=== PATIENT | female | born 1955 | race Caucasian/White ===

== ENCOUNTER 2019-06-24 11:44 | Inpatient (IN) ==
--- OUTSIDE RECORDS SUMMARY | 2019-06-24 11:46 | External Medical Summary | Continuity of Care Document ---
:1955 Author Name Mely Boogie Address Unavailable Unavailable , Care Team Providers Name Role Phone Unavailable Unavailable Unavailable BURR Unavailable Unavailable Unavailable Unavailable Unavailable Problems IBS (irritable colon syndrome) (564.1) (K58.9) Myalgia and myositis (729.1) Pulmonary infarction (415.19) (I26.99) Pulmonary emboli (415.19) (I26.99) Dyslipidemia (272.4) (E78.5) Benign essential HTN (401.1) (I10) Hartman's esophagus (530.85) (K22.70) SOB (shortness of breath) (786.05) (R06.02) Allergies and Adverse Reactions Penicillins (Allergy) Sulfa Drugs (Allergy) Medications Doxycycline Hyclate 50 MG Oral Capsule; TAKE 1 CAPSULE TWICE DAILY. , M.DLidya Start: 21-May-2018 Quantity: 20 Refills: 1 Levothyroxine Sodium 100 MCG Oral Tablet; take 1 table t by mouth once daily , M.DLidya Start: 21-May-2018 Quantity: 30 Refills: 5 Pantoprazole Sodium 40 MG Oral Tablet Delayed Release; TAKE 1 TABLET DAILY. , M.DLidya Start: 21-May-2018 Quantity: 30 Refills: 5 Lisinopril 10 MG Oral Tablet; TAKE 1 TABLET BY MOUTH EVERY D AY Keagan Start: 21-May-2018 Quantity: 1 15 Tablet Bottle Refills: 2 PROzac 20 MG Oral Capsule; TAKE 2 CAPSULES DAILY. , M.DLidya Start: 21-May-2018 Quantity: 180 Refills: 2 Ventolin HFA 108 (90 Base) MCG/ACT Inhal ation Aerosol Solution; INHALE 2 PUFFS EVERY 4 HOURS NEEDED , M.DLidya Start: 21-May-2018 Quantity: 1 8 GM Inhaler Refills: 3 Fiber 625 MG Oral Tablet; USE DIRECTED. Keagan Start: 21-May-2018 Refills: 0 Calcium 500 + D 500-125 MG-UNIT Oral Tablet; TAKE 1 TABLET D Keagan VELÁZQUEZ Start: 21-May-2018 Refills: 0 Multi-Vitamin/Minerals Oral Tablet; TAKE 1 TABLET Manas AGOSTO Start: 21-May-2018 Refills: 0 Procedures Procedures not documented Immunizations Immunizations not documented Social History - Smoking Status Never smoked tobacco Plan of Treatment Planned Observations Planned Goals not documented Results No Known Results Results not documented Encounters Appointment; Jason Garcia M.D. 01-Jun-2018 15:15 Encounter Diagnosis: Problem not documented
--- OUTSIDE RECORDS SUMMARY | 2019-06-24 11:46 | External Medical Summary | Continuity of Care Document ---
:1955 Author Name Mely Boogie Address Unavailable Unavailable , Care Team Providers Name Role Phone Unavailable Unavailable Unavailable BURR Unavailable Unavailable Unavailable Unavailable Unavailable Problems IBS (irritable colon syndrome) (564.1) (K58.9) Myalgia and myositis (729.1) SOB (shortness of breath) (786.05) (R06.02) Hartman's esophagus (530.85) (K22.70) Benign essential HTN (401.1) (I10) Dyslipidemia (272.4) (E78.5) Pulmonary emboli (415.19) (I26.99) Pulmonary infarction (415.19) (I26.99) Allergies and Adverse Reactions Penicillins (Allergy) Sulfa Drugs (Allergy) Medications Pantoprazole Sodium 40 MG Oral Tablet Delayed Release; TAKE 1 TABLET DAILY. , M.DLidya Start: 21-May-2018 Quantity: 30 Refills: 5 Levothyroxine Sodium 100 MCG Oral Tablet; take 1 table t by mouth once daily , M.DLidya Start: 21-May-2018 Quantity: 30 Refills: 5 Doxycycline Hyclate 50 MG Oral Capsule; TAKE 1 CAPSULE TWICE DAILY. , M.DLidya Start: 21-May-2018 Quantity: 20 Refills: 1 Lisinopril 10 MG Oral Tablet; TAKE 1 [...]
--- NOTE | 2019-06-24 12:09 | Emergency Department Note ---
ED Provider Note NAME: SLOANE CASTANON AGE: 63 SEX: F ARRIVES VIA: Walk-In INFORMANT: [Patient] ED PROVIDER(S): Shashi Hernandez MD CHIEF COMPLAINT: Extremity weakness IMPRESSION: Extremity weakness PLAN: Disposition: Admit Condition: [Good] MEDICAL DECISION MAKING: The patient is a 63-year-old has profound extremity weakness. She does have upper extremity reflexes but does not have lower extremity reflexes. Blood work, MR imaging and neurology consultation were performed. Triage Nursing notes reviewed and agree them. [Additional history obtained from] Dr. Sanchez of rheumatology. He had the patient referred to his office. He did review her labs and she had a normal ESR and borderline CRP. Thyroid function was rather unremarkable. Vital Signs: reviewed and remarkable for [no significant abnormalities] Differential diagnosis: Infection, dehydration, metabolic abnormality, hypo/hyperglycemia, electrolyte disturbance, anemia, hypoxia, cardiac sources, intracerebral event, toxicologic, GBS, neurologic, as well as other pathologies. ER treatment provided: Normal saline hydration Oral Ativan Diagnostics interpreted by me: ECG: Rate: 81 Rhythm: Normal sinus rhythm [place]: Normal QRS: Normal ST segements: No elevation or depressions. Other: Inferior Q waves. No PVCs or PACs. Laboratory studies: [See below] an unremarkable CBC and chemistry panel. Imaging studies: MR imaging of the head and cervical spine revealed degenerative changes in the cervical spine with canal narrowing and compression on the anterior cord without cord signal abnormalities. No brain abnormalities. Consultation(s): Dr. Shashi Damian of [facility] neurology. The case was discussed. He recommended transfer to [place] given the concerns for possible GBS. I did discuss the case with Dr. Wong of neurology at [facility]. Given the current issues with the novel coronavirus infection and bed shortage she asked that the patient have additional work-up done here before transfer. I did notify Dr. Damian. He asked for the hospitalist to admit the patient and he would consult. I did discuss the case with Kristen RIVERO from the [facility] hospitalist service. The patient will be admitted under Dr. Kim. HPI: 63/F arrives for evaluation of weakness. This began several weeks ago. He got to the point where she is having difficulty walking and falling. Today she actually had a minor fall without injury but was unable to get herself up because she noticed that she was having arm weakness as well. She was seen in the primary office and referred to rheumatology. Rheumatoid factor and other blood work were unremarkable. The patient's head of sales, Dr. Mich Sanchez contacted me in the emergency department and was concerned that this was a neurologic issue. He did discuss the case with Dr. Damian of [facility] neurology and he agreed. The patient denies any pain. She has chronic neck issues but nothing has changed there. She has had these problems for multiple decades. She had an old C3 fracture. The patient took no medication for her symptoms. She feels worse with exertion. No muscle pains. Pt denies LOC, headache, fevers, chills, diaphoresis, visual changes, chest pain, breathing difficulties, nausea, vomiting, abdominal pain, back pain, melena, hematochezia, urinary symptoms, numbness, lymphadenopathy, rash, or other complaints. ROS: See above HPI for pertinent positives & negatives. A total of [10] systems reviewed and were otherwise negative. PAST MEDICAL HISTORY:[See Below] hypertension PAST SURGICAL HISTORY:[See Below] FAMILY HISTORY:[See Below] SOCIAL HISTORY: HOME MEDICATIONS:Reviewed in EMR ALLERGIES:Penicillin and sulfa. Sulfate. Reviewed in EMR. VITALS:[See Below] PHYSICAL EXAMINATION: GENERAL: Awake, alert, well-appearing, in no distress HENT: Normocephalic, atraumatic. Oropharynx unremarkable. EYES: Normal conjunctiva. Sclera non-icteric. NECK: Inspection normal. Non-tender. Supple. No nuchal rigidity. FROM. No masses. RESPIRATORY: Clear to auscultation. No wheezes. No rales. Normal respiratory effort. CARDIAC: Normal rate. Normal rhythm. No murmurs. No rubs. Extremities warm and well perfused. Pulses equal. No JVD. GI: Soft, non-distended. No tenderness to palpation. No rebound or guarding. No masses. RECTAL: Deferred. MUSCULOSKELETAL: Atraumatic. Chest examination reveals no tenderness. The back is symmetrical on inspection without obvious abnormality. There is no CVA tenderness to palpation. No joint edema. LOWER EXTREMITIES: Calves are equal size bilaterally and non-tender. No edema. No discoloration. NEURO: Normal sensorium. No sensory deficits noted. The patient has 3 out of 5 strength in the left lower extremity. She has 3.5 out of strength in the right lower extremity. The patient has 4-5 strength in the upper extremities. There is no patellar or Achilles reflexes noted in the lower extremities. She does have bicep tendon reflexes bilaterally. SKIN: No rash or jaundice noted. 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 Beliefs That Will Affect Care: None marital status: Current Living Situation: Spouse Feels Safe at Home: Yes Smoking Status: Never smoker Hx Alcohol Use: Yes Alcohol type: wine Alcohol type Comment: 8 ounces once a week Hx Substance Use: No (currently oxy IR for post op pain) Results & Data Vital Signs Vital Signs - 24 hr 06/24/19 11:46 06/24/19 11:56 06/24/19 11:57 Temperature 36.8 C Temperature Source Oral Pulse Rate 91 H 88 Pulse Rate [Left Finger] 88 Pulse Rate from SpO2 Sensor 89 Respiratory Rate 20 16 22 Respiratory Effort / Characteristics Non-Labored Spontaneous Respiratory Depth Normal Respiratory Pattern Agonal Blood Pressure 163/84 H 171/106 H Blood Pressure [Right Arm] 171/106 H Blood Pressure Mean 110 143 Blood Pressure Mean [Right Arm] 127 Pulse Oximetry 97 98 99 Oxygen Delivery Method Room Air Room Air Sepsis Recent Fever Within 48 Hours No Sepsis Action Taken by Nursing No Action Required 06/24/19 12:02 06/24/19 12:10 06/24/19 12:21 Temperature Temperature Source Pulse Rate 88 84 87 Pulse Rate [Left Finger] Pulse Rate from SpO2 Sensor 88 86 87 Respiratory Rate 19 20 24 Respiratory Effort / Characteristics Respiratory Depth Respiratory Pattern Blood Pressure Blood Pressure [Right Arm] Blood Pressure Mean Blood Pressure Mean [Right Arm] Pulse Oximetry 98 96 97 Oxygen Delivery Method Room Air Room Air Room Air Sepsis Recent Fever Within 48 Hours Sepsis Action Taken by Nursing 06/24/19 12:28 06/24/19 12:30 06/24/19 12:31 Temperature Temperature Source Pulse Rate 83 83 85 Pulse Rate [Left Finger] Pulse Rate from SpO2 Sensor 83 83 84 Respiratory Rate 17 18 13 Respiratory Effort / Characteristics Respiratory Depth Respiratory Pattern Blood Pressure 173/81 H 159/87 H Blood Pressure [Right Arm] Blood Pressure Mean 125 110 Blood Pressure Mean [Right Arm] Pulse Oximetry 98 97 95 Oxygen Delivery Method Room Air Room Air Room Air Sepsis Recent Fever Within 48 Hours Sepsis Action Taken by Nursing 06/24/19 12:40 06/24/19 12:50 06/24/19 13:01 Temperature Temperature Source Pulse Rate 85 87 94 H Pulse Rate [Left Finger] Pulse Rate from SpO2 Sensor 85 87 95 H Respiratory Rate 17 13 21 Respiratory Effort / Characteristics Respiratory Depth Respiratory Pattern Blood Pressure Blood Pressure [Right Arm] Blood Pressure Mean 121 Blood Pressure Mean [Right Arm] Pulse Oximetry 95 95 99 Oxygen Delivery Method Room Air Room Air Room Air Sepsis Recent Fever Within 48 Hours Sepsis Action Taken by Nursing 06/24/19 13:10 06/24/19 13:20 06/24/19 15:01 Temperature Temperature Source Pulse Rate 85 Pulse Rate [Left Finger] Pulse Rate from SpO2 Sensor 83 Respiratory Rate 14 Respiratory Effort / Characteristics Respiratory Depth Respiratory Pattern Blood Pressure Blood Pressure [Right Arm] Blood Pressure Mean Blood Pressure Mean [Right Arm] Pulse Oximetry 97 Oxygen Delivery Method Room Air Room Air Room Air Sepsis Recent Fever Within 48 Hours Sepsis Action Taken by Nursing 06/24/19 15:02 06/24/19 15:04 06/24/19 15:11 Temperature Temperature Source Pulse Rate 85 87 84 Pulse Rate [Left Finger] 84 Pulse Rate from SpO2 Sensor 84 85 85 Respiratory Rate 15 15 12 Respiratory Effort / Characteristics Non-Labored Respiratory Depth Normal Respiratory Pattern Regular Blood Pressure 181/107 H 152/86 H Blood Pressure [Right Arm] 181/107 H Blood Pressure Mean 127 96 Blood Pressure Mean [Right Arm] 131 Pulse Oximetry 97 96 94 Oxygen Delivery Method Room Air Room Air Room Air Sepsis Recent Fever Within 48 Hours Sepsis Action Taken by Nursing 06/24/19 15:20 06/24/19 15:30 06/24/19 15:31 Temperature Temperature Source Pulse Rate 84 87 88 Pulse Rate [Left Finger] Pulse Rate from SpO2 Sensor 85 87 89 Respiratory Rate 10 L 18 14 Respiratory Effort / Characteristics Respiratory Depth Respiratory Pattern Blood Pressure 147/88 H Blood Pressure [Right Arm] Blood Pressure Mean 114 Blood Pressure Mean [Right Arm] Pulse Oximetry 94 97 97 Oxygen Delivery Method Room Air Room Air Room Air Sepsis Recent Fever Within 48 Hours Sepsis Action Taken by Nursing 06/24/19 15:41 06/24/19 15:50 06/24/19 16:00 Temperature Temperature Source Pulse Rate 85 109 H 86 Pulse Rate [Left Finger] Pulse Rate from SpO2 Sensor 85 101 H 86 Respiratory Rate 21 13 15 Respiratory Effort / Characteristics Respiratory Depth Respiratory Pattern Blood Pressure 147/92 H Blood Pressure [Right Arm] Blood Pressure Mean 106 Blood Pressure Mean [Right Arm] Pulse Oximetry 97 96 94 Oxygen Delivery Method Room Air Room Air Room Air Sepsis Recent Fever Within 48 Hours Sepsis Action Taken by Nursing 06/24/19 16:01 06/24/19 16:11 06/24/19 16:20 Temperature Temperature Source Pulse Rate 86 84 85 Pulse Rate [Left Finger] Pulse Rate from SpO2 Sensor 86 85 86 Respiratory Rate 12 14 13 Respiratory Effort / Characteristics Respiratory Depth Respiratory Pattern Blood Pressure Blood Pressure [Right Arm] Blood Pressure Mean Blood Pressure Mean [Right Arm] Pulse Oximetry 91 94 95 Oxygen Delivery Method Room Air Sepsis Recent Fever Within 48 Hours Sepsis Action Taken by Nursing 06/24/19 16:30 06/24/19 16:41 06/24/19 16:50 Temperature Temperature Source Pulse Rate 89 86 87 Pulse Rate [Left Finger] Pulse Rate from SpO2 Sensor 88 86 86 Respiratory Rate 18 17 15 Respiratory Effort / Characteristics Respiratory Depth Respiratory Pattern Blood Pressure 136/93 Blood Pressure [Right Arm] Blood Pressure Mean 109 Blood Pressure Mean [Right Arm] Pulse Oximetry 96 96 96 Oxygen Delivery Method Sepsis Recent Fever Within 48 Hours Sepsis Action Taken by Nursing 06/24/19 17:00 06/24/19 17:08 06/24/19 17:11 Temperature Temperature Source Pulse Rate 91 H 93 H Pulse Rate [Left Finger] 96 H Pulse Rate from SpO2 Sensor 91 H 92 H Respiratory Rate 21 20 16 Respiratory Effort / Characteristics Non-Labored Spontaneous Respiratory Depth Normal Respiratory Pattern Regular Blood Pressure 106/78 Blood Pressure [Right Arm] 106/78 Blood Pressure Mean 97 Blood Pressure Mean [Right Arm] 87 Pulse Oximetry 96 98 95 Oxygen Delivery Method Room Air Sepsis Recent Fever Within 48 Hours Sepsis Action Taken by Nursing 06/24/19 17:20 Temperature Temperature Source Pulse Rate 85 Pulse Rate [Left Finger] Pulse Rate from SpO2 Sensor 84 Respiratory Rate 10 L Respiratory Effort / Characteristics Respiratory Depth Respiratory Pattern Blood Pressure Blood Pressure [Right Arm] Blood Pressure Mean Blood Pressure Mean [Right Arm] Pulse Oximetry 95 Oxygen Delivery Method Sepsis Recent Fever Within 48 Hours Sepsis Action Taken by Nursing Laboratory Data Result diagrams: 06/24/19 12:17 06/24/19 12:17 Lab Results 06/24/19 06/24/19 06/24/19 Range/Units 12:17 12:17 13:02 WBC 6.44 (4.8-10.8) K/uL RBC 4.54 (4.2-5.4) M/uL Hgb 12.9 (12.0-16.0) g/dL Hct 39.1 (37-47) % MCV 86.1 (80-100) fL MCH 28.4 (25-34) pg MCHC 33.0 (32-36) g/dL RDW Std Deviation 40.9 (36.4-46.3) fL RDW Coeff of [place] 12.9 (11.5-14.5) % Plt Count 165 (130-400) K/uL MPV 10.2 (7.4-10.4) fL Immature Gran % (Auto) 0.2 % Neut % (Auto) 83.3 % Lymph % (Auto) 9.5 % Daniels % (Auto) 6.5 % Eos % (Auto) 0.3 % Baso % (Auto) 0.2 % Immature Gran # (Auto) 0.01 (0.00-0.02) K/uL Neut # (Auto) 5.37 (1.4-6.5) K/uL Lymph # (Auto) 0.61 L (1.2-3.4) K/uL Daniels # (Auto) 0.42 (0.11-0.59) K/uL Eos # (Auto) 0.02 (0-0.5) K/uL Baso # (Auto) 0.01 (0-0.2) K/uL Sodium 138 (136-145) mmol/L Potassium 3.6 (3.5-5.1) mmol/L Chloride 107 (98-107) mmol/L Carbon Dioxide 26 (21-32) mmol/L Anion Gap 5.0 (3-11) BUN 20 H (7-18) mg/dl Creatinine 0.89 (0.6-1.2) mg/dl Est Cr Clr Drug Dosing 76.3 ml/min Est GFR ( Amer) 79.4 Est GFR (Non-Af Amer) 68.5 BUN/Creatinine Ratio 22.8 H (10-20) Glucose 199 H (70-99) mg/dl Calcium 8.8 (8.5-10.1) mg/dl Magnesium 1.6 L (1.8-2.4) mg/dl Total Bilirubin 0.5 (0.2-1) mg/dl AST 21 (15-37) U/L ALT 26 (12-78) U/L Alkaline Phosphatase 115 (45-117) U/L Total Creatine Kinase 81 (26-192) U/L Troponin I < 0.015 (0-0.045) ng/ml Total Protein 7.0 (6.4-8.2) gm/dl Albumin 3.0 L (3.4-5.0) gm/dl Globulin 4.0 (2.5-4.0) gm/dl Albumin/Globulin Ratio 0.8 L (0.9-2) TSH 1.720 (0.300-4.500) uIu/ml Urine Color Yellow Urine Appearance Clear (Clear) Urine pH 7.0 (4.5-7.5) Ur Specific [place] 1.008 (1.000-1.030) Urine Protein 2+ H (Negative) Urine Glucose (UA) Negative (Negative) Urine Ketones Negative (Negative) Urine Blood 1+ H (Negative) Urine Nitrite Negative (Negative) Urine Bilirubin Negative (Negative) Urine Urobilinogen Negative (Negative) Ur Leukocyte Esterase Trace H (Negative) Urine WBC (Auto) 5-10 H (0-5) /hpf Urine RBC (Auto) 0-4 (0-4) /hpf U Hyaline Cast (Auto) 0 (0-5) /lpf U Epithel Cells (Auto) 5-10 H (0-5) /lpf Urine Bacteria (Auto) 1+ H (Negative) Administered Medications Gadobutrol (Gadavist 65ml) 9 ml IV ONCE PRN PRN Reason: Interaction Checking Stop: 06/28/19 14:15 Last Admin: 06/24/19 14:16 Dose: 9 ml Documented by: [id number] Sodium Chloride (Nss 1000ml) 1,000 mls @ 125 mls/hr IV .Q8H NOEMI Stop: 06/24/19 20:14 Last Admin: 06/24/19 12:20 Dose: 125 mls/hr Documented by: [id number] Discontinued Medications Lorazepam (Ativan) 1 mg SL NOW STA Stop: 06/24/19 12:50 Last Admin: 06/24/19 12:55 Dose: 1 mg Documented by: [id number] Discharge Plan Visit Data Chief Complaint: Weakness Stated Complaint: MUSCLE WEAKNESS ED Provider: Shashi Hernandez Discharge Problem: Weakness of extremity Forms Stand Alone Forms: [facility] Prescriptions Prescriptions: No Action calcium polycarbophil [FiberCon] 625 mg Tablet 1,250 mg PO QAM RF: 0 levothyroxine 100 mcg Tablet 100 mcg PO QAM RF: 0 omeprazole 20 mg capsule,delayed release(DR/EC) 20 mg PO DAILY RF: 0 fluoxetine 20 mg capsule 20 mg PO DAILY RF: 0 albuterol sulfate [Ventolin HFA] 90 mcg/actuation Hfa Aerosol Inhaler 2 puff INHALATION Q6H PRN (Reason: Shortness Of Breath) RF: 0 hydrochlorothiazide 25 mg tablet 25 mg PO DAILY RF: 0 losartan 100 mg tablet 100 mg PO DAILY RF: 0 Excedrin Migraine 250-250-65 mg Tablet 1 tab PO Q6H PRN (Reason: Headache) RF: 0 Referrals Referrals: PCP,NO [Primary Care Provider] -
[2019-06-24] MEDS ORDERED: SODIUM CHLORIDE 0.9% 1000ML 1,000 ML IV SCH ×2 (12:15→19:12)
[2019-06-24 12:29] LABS: Basophils # (auto) 0.01 K/uL (0-0.2); Basophils % (auto) 0.2 %; Eosinophils # (auto) 0.02 K/uL (0-0.5); Eosinophils % (auto) 0.3 %; Hematocrit (blood only) 39.1 % (37-47); Hemoglobin 12.9 g/dL (12.0-16.0); Immature Granulocytes # (auto) 0.01 K/uL (0.00-0.02); Immature Granulocytes % (auto) 0.2 %; Lymphocytes # (auto) 0.61 K/uL (1.2-3.4); Lymphocytes % (auto) 9.5 %; Mean Corpuscular Hemoglobin 28.4 pg (25-34); Mean Corpuscular Volume 86.1 fL (80-100); Mean Platelet Volume 10.2 fL (7.4-10.4); Monocytes # (auto) 0.42 K/uL (0.11-0.59); Monocytes % (auto) 6.5 %; Neutrophils # (auto) 5.37 K/uL (1.4-6.5); Neutrophils % (auto) 83.3 %; Platelet Count 165 K/uL (130-400); RDW Coefficient of Variation 12.9 % (11.5-14.5); RDW Standard Deviation 40.9 fL (36.4-46.3); Red Blood Count 4.54 M/uL (4.2-5.4); White Blood Count 6.44 K/uL (4.8-10.8)
[2019-06-24 12:45] LABS: Alanine Aminotransferase 26 U/L (12-78); Aspartate Aminotransferase 21 U/L (15-37); BUN Creatinine Ratio 22.8 (10-20); Blood Urea Nitrogen 20 mg/dl (7-18); Calcium 8.8 mg/dl (8.5-10.1); Carbon Dioxide 26 mmol/L (21-32); Chloride 107 mmol/L (98-107); Creatinine Clr Calc Pharmacy 76.3 ml/min; Est GFR (African American) 79.4; Est GFR (Non-African American) 68.5; Glucose 199 mg/dl (70-99); Magnesium 1.6 mg/dl (1.8-2.4); Potassium 3.6 mmol/L (3.5-5.1); Sodium 138 mmol/L (136-145)
[2019-06-24] MEDS ORDERED: LORazepam 1 MG TAB SL STA (12:49)
[2019-06-24 12:56] LABS: Albumin Globulin Ratio 0.8 (0.9-2); Alkaline Phosphatase 115 U/L (45-117); Bilirubin,Total 0.5 mg/dl (0.2-1); Creatine Kinase 81 U/L (26-192); Troponin I < 0.015 ng/ml (0-0.045)
--- NOTE | 2019-06-24 13:08 | XRay Report ---
XR chest 1V portable CLINICAL HISTORY: weakness dyspnea COMPARISON STUDY: 05/18/2018 FINDINGS: The bones soft tissues and hemidiaphragms are normal. The cardiomediastinal silhouette is n ormal. The lungs are clear. The pulmonary vasculature is normal. IMPRESSION: Negative chest. ACT 112: Negative or not required by law. The above report was generated using voice recognition software. It may contain grammatical, syntax or spelling errors. Electronically signed by: Alan Duckworth M.D. 06/24/2019 1:07 PM
[2019-06-24 13:19] LABS: Appearance Urine Clear (Clear); Bacteria Urine Automated 1+ (Negative); Bilirubin Urine Negative (Negative); Blood Urine 1+ (Negative); Cast Urine Automated 0 /lpf (0-5); Color Urine Yellow; Glucose Urine UA Negative (Negative); Ketones Urine Negative (Negative); Leukocyte Esterase Urine Trace (Negative); Nitrite Urine Negative (Negative); Protein Urine 2+ (Negative); RBC Urine Automated 0-4 /hpf (0-4); Specific Gravity Urine 1.008 (1.000-1.030); Urobilinogen Urine Negative (Negative)
[2019-06-24] MEDS ORDERED: GADOBUTROL 65ML VIAL IV PRN (14:16)
--- NOTE | 2019-06-24 14:31 | Magnetic Resonance Report ---
MR brain MS wo/w con HISTORY: 63 years-old Female profound extremity weakness acute weakness COMPARISON: None TECHNIQUE: Multiplanar multisequence MRI of the brain was obtained both with and without the use of G adavist FINDINGS: Cancer Researcher localizer images demonstrate no gross extracranial abnormality. Study is motion degraded. No re stricted diffusion to suggest acute or subacute infarct. The visualized midline structures including the corpus callosum, brainstem, optic chiasm, pituitary and pineal glands appear unremarkable on the sagittal T1 series. No cerebellar tonsillar herniation. Degenerative changes are noted in the imaged cervical spine. No acute intracranial hemorrhage, midline shift, abnormal extra-axial collection, hydrocephalus or in tracranial mass. Subcentimeter lesions of the bilateral superficial lobes of the parotid glands measu ring up to 9 x 8 mm on the right may reflect lymph nodes demonstrate restricted diffusion with interm ediate T1 and T2 signal. There is a punctate focus of T2/FLAIR prolongation within the subcortical wh ite matter of the left frontal lobe, image 90 of series 900 and image 91 of series 902, likely of no clinical significance. Additional subcentimeter focus is noted within the subcortical right temporal lobe on image 130 of series 900.. Signal within the brain parenchyma is otherwise within normal limit s. No abnormal enhancement. Signal within the imaged brainstem and cervical spinal cord is also withi n normal limits. Major vascular flow voids appear patent. Trace right mastoid effusion. Minimal mucosal thickening of the paranasal sinuses. The skull and orbits are unremarkable. Prominent subcentimeter anterior and po sterior cervical chain lymph nodes are present bilaterally measuring up to 8 mm, nonspecific. IMPRESSION: 1. Motion degraded exam without acute intracranial abnormality, specifically there is no evidence of acute or subacute infarct. 2. There are a total of two punctate foci of T2/FLAIR prolongation within the subcortical white matte r of the bilateral cerebral hemispheres as above, likely of no clinical significance. No definite huber dence to suggest demyelinating disease. 3. Nonspecific prominent anterior and posterior cervical chain lymph nodes are incidentally noted juan aterally. 4. No abnormal enhancement. ACT 112: Negative or not required by law. The above report was generated using voice recognition software. It may contain grammatical, syntax o r spelling errors. Electronically signed by: Karsten Lewis M.D. 06/24/2019 2:24 PM
--- NOTE | 2019-06-24 14:53 | Magnetic Resonance Report ---
CERVICAL SPINE MRI WITH AND WITHOUT CONTRAST HISTORY: profound extremity weakness, hx of very old c3fx TECHNIQUE: Multiplanar multisequence MRI of the cervical spine was performed both before and after th e use of intravenous contrast. COMPARISON STUDY: None. FINDINGS: Mild reversal of the normal lordotic curvature. Alignment remains intact. No fractures with in the cervical spine. Prevertebral soft tissues and the C1-C2 interval are intact. There is severe d isc space narrowing at C4-C5 with endplate osteophytes. Mild to moderate disc space narrowing at C5-C 6 and C6-C7 with endplate osteophytes. The visualized posterior fossa is unremarkable. The cervical s dennis cord demonstrates a normal signal intensity. No abnormal enhancement. No paraspinal or epidural masses or fluid collections. Shotty bilateral cervical lymph nodes. C2-C3: No significant central canal or neural foraminal narrowing. C3-C4: No significant central canal narrowing. There is mild bilateral neural foraminal narrowing. C4-C5: Broad-based posterior disc osteophyte complex resulting in mild anterior cord deformity and mi ld to moderate central canal narrowing. The AP diameter of the central canal measures 8 mm. There is severe right and moderate left neural foraminal narrowing due to the uncovertebral and facet hypertro phy. C5-C6: Small broad-based posterior disc bulge which abuts but does not deform the anterior cord consi stent with mild central canal narrowing. There are severe right and moderate left neural foraminal na rrowing. C6-C7: Small broad-based posterior disc bulge which abuts but does not deform the anterior cord consi stent with mild central canal narrowing. There are severe right and moderate left neural foraminal na rrowing. C7-T1: No significant central canal or neural foraminal narrowing. IMPRESSION: 1. No abnormal signal intensity within the cervical spinal cord. 2. Multilevel degenerative disc disease within the mid to lower cervical spine as described above mos t pronounced at the C4-C5 level which results in mild to moderate central canal narrowing with mild a nterior cord deformity. 3. Additional degenerative changes as described above. ACT 112: Negative or not required by law. Electronically signed by: Leon Drummond M.D. 06/24/2019 2:52 PM
--- NOTE | 2019-06-24 17:39 | History & Physical Report ---
Date of Service June 24, 2019 Assessment & Plan (1) Weakness: Pt is 63 y/o F with PMH hypothyroidism, Hartman's esophagus, HTN, dyslipidemia, depression, asthma, IBS presented to ER with complaint of lower extremity weakness a couple of weeks ago, upper extremity weakness past week. There was initial concern for possible guillain barre and pt sent to ER for evaluation. In ER vitals stable. Pt noted to have proximal muscle weakness and hyporeflexia. No SOB DDX: polyneuropathy MRI BRAIN: 1. Motion degraded exam without acute intracranial abnormality, specifically there is no evidence of acute or subacute infarct. 2. There are a total of two punctate foci of T2/FLAIR prolongation within the subcortical white matter of the bilateral cerebral hemispheres as above, likely of no clinical significance. No definite evidence to suggest demyelinating disease. 3. Nonspecific prominent anterior and posterior cervical chain lymph nodes are incidentally noted bilaterally. 4. No abnormal enhancement. CERVICAL SPINE MRI: 1. No abnormal signal intensity within the cervical spinal cord. 2. Multilevel degenerative disc disease within the mid to lower cervical spine as described above most pronounced at the C4-C5 level which results in mild to moderate central canal narrowing with mild anterior cord deformity. 3. Additional degenerative changes as described above. -Admit child monitor -Neurochecks every 4 hours -Serial spirometry -IVF -Neurology consulted, Dr. Damian initially recommended transfer [place] [facility] had no beds available. Dr. Damian recontacted will admit patient here recommends thoracic and lumbar spine MRI with contrast, recommends lumbar puncture after review of MRI, recommends Lyme, serum protein electrophoresis, B12, folate, vitamin D levels, CPK, acetylcholine receptor binding antibody -CBC, BMP in a.m. (2) Hypomagnesemia: Magnesium: 1.6 -Replace and monitor (3) Hypertension: Stable -Continue losartan, HCTZ (4) Barretts esophagus: -Continue PPI (5) Hypothyroidism: TSH: 1.7 -Continue levothyroxine (6) Depression: -Continue fluoxetine DVT Prophylaxis -SCDs Full code as per discussion with pt Follows with Dr Mary Olsen for routine care Pt was seen and care coordinated with Dr Kim. See addendum History of Present Illness Chief Complaint: Weakness Primary Care Provider: Dr Mary Olsen Pt is 63 y/o F with PMH hypothyroidism, Hartman's esophagus, HTN, dyslipidemia, depression, asthma, IBS presented to ER with complaint of weakness. Patient states started with bilateral leg weakness a couple of weeks ago. She describes it as her legs feeling heavy and noted having difficulty climbing stairs secondary to leg weakness. Patient states the past week has noticed arm and hand weakness bilaterally. Reports she has been having trouble gripping things and has been dropping objects. Feels like weakness has increased over the past week. Today she fell and was unable to get herself off the floor for an hour and needed to call for help. Patient states she cannot get off toilet without assistance. States when she is walking she is able to ambulate however her legs feel stiff. Reports chronic tingling sensation to bilateral hands and fingers for years denies any increased. Patient complains of numbness sensation to plantar surface bilateral feet she thinks for several weeks. Denies any shortness of breath. Reports chronic headaches and takes Excedrin in the mornings daily with relief of headache. Denies any increase headache. Denies any visual disturbance or vision loss. Denies any leg or arm pain. Chronic neck pain denies any increase symptoms. Denies back pain, loss of control bowel or bladder. No known tick bites or rashes. No recent URI symptoms. Has IBS and chronic intermittent loose stools, no recent diarrhea. Patient seen in clinic yesterday and had labs including sed rate, CRP, rheumatoid factor, ELIZABETH. And was started on prednisone. Patient does not feel prednisone helped. Denies fever/chills, diaphoresis, N/V/C, dizziness, syncope, CP, orthopnea, palpitations, cough, sore throat, choking, otalgia, rhinorrhea, abdominal pain, extremity edema, urinary symptoms. Allergies Allergy/AdvReac Type Severity Reaction Status Date / Time sucralfate [From Carafate] Allergy Mild Verified 06/24/19 12:46 hornet venom Allergy Unknown ANAPHYLAXIS Verified 06/24/19 12:46 Penicillins Allergy Unknown RASH Unverified 06/24/19 12:46 Sulfa (Sulfonamide Allergy Unknown RASH Verified 06/24/19 12:46 Antibiotics) Home Medications Home Medications Medication Instructions Recorded Confirmed Type albuterol sulfate [Ventolin HFA] 2 puff INHALATION Q6H PRN 05/18/18 06/24/19 History calcium polycarbophil [FiberCon] 1,250 mg PO QAM 05/18/18 06/24/19 History fluoxetine 20 mg PO DAILY 05/18/18 06/24/19 History levothyroxine 100 mcg PO QAM 05/18/18 06/24/19 History omeprazole 20 mg PO DAILY 05/18/18 06/24/19 History kbshodf-hvbkbhmjxxwnf-zcgmzrhj 1 tab PO Q6H PRN 06/24/19 06/24/19 History [Excedrin Migraine] hydrochlorothiazide 25 mg PO DAILY 06/24/19 06/24/19 History losartan 100 mg PO DAILY 06/24/19 06/24/19 History Past Med/Surg History Medical History (Updated 06/24/19 @ 17:48 by Christina Rees PA-C) Asthma (Chronic) Hartman's esophagus with esophagitis Barretts esophagus Depression HLD (hyperlipidemia) Hypertension (Chronic) Hypothyroidism MDD (major depressive disorder) Surgical History History of bilateral breast reduction surgery 05/12/18 Dr. Dom Cameron [facility] History of colonoscopy with polypectomy History of esophagogastroduodenoscopy (EGD) History of fusion of cervical spine History of right knee joint replacement (Resolved) History of total hysterectomy with bilateral salpingo-oophorectomy (BSO) Social History (Updated 06/24/19 @ 17:40 by Christina Rees PA-C) Preferred Language: Divehi Communication Ability: Effective Binding End Stitcher Required: No Beliefs That Will Affect Care: None marital status: Current Living Situation: Spouse Feels Safe at Home: Yes Smoking Status: Never smoker Hx Alcohol Use: Yes Alcohol type: beer, wine and other Alcohol type Comment: 8 ounces once a week Hx Substance Use: No Review of Systems Review of Systems: All systems reviewed & are unremarkable except as noted in HPI & below Physical Exam Physical Exam: General: no distress, overweight Head: normocephalic, atraumatic Eyes: PERRL, EOM's intact, conjunctiva non-injected, anicteric ENT: normal inspection external ears, nose, mucous membranes moist Neck: supple, trachea midline, non-tender, ROM intact Lungs: clear, no respiratory distress, no wheezing/rhonchi/rales CV: RRR, no murmur, no pretibial edema Abd: normal BS, soft, non-tender Ext: no cyanosis, no calf tenderness Neuro: A&O x 3, normal affect, facial sensation is intact and symmetric, face is strong and symmetric, hearing grossly intact, no dysarthria, shoulder shrug intact, tongue is midline, normal movement proximal muscle weakness bilateral upper and lower extremities, actuary clerk strength intact bilaterally; decreased patellar reflexes Skin: warm, dry Results & Data Vital Signs (Past 12 Hours) Vital Signs Temp Pulse Pulse Resp BP BP Pulse Ox 06/24/19 17:20 85 10 L 95 06/24/19 17:11 93 H 16 95 06/24/19 17:08 96 H 20 106/78 98 06/24/19 17:00 91 H 21 106/78 96 06/24/19 16:50 87 15 96 06/24/19 16:41 86 17 96 06/24/19 16:30 89 18 136/93 96 06/24/19 16:20 85 13 95 06/24/19 16:11 84 14 94 06/24/19 16:01 86 12 91 06/24/19 16:00 86 15 147/92 H 94 06/24/19 15:50 109 H 13 96 06/24/19 15:41 85 21 97 06/24/19 15:31 88 14 97 06/24/19 15:30 87 18 147/88 H 97 06/24/19 15:20 84 10 L 94 06/24/19 15:11 84 12 94 06/24/19 15:04 87 15 152/86 H 96 06/24/19 15:02 85 84 15 181/107 H 181/107 H 97 06/24/19 15:01 85 14 97 06/24/19 13:01 94 H 21 99 06/24/19 12:50 87 13 95 06/24/19 12:40 85 17 95 06/24/19 12:31 85 13 95 06/24/19 12:30 83 18 159/87 H 97 06/24/19 12:28 83 17 173/81 H 98 06/24/19 12:21 87 24 97 06/24/19 12:10 84 20 96 06/24/19 12:02 88 19 98 06/24/19 11:57 88 22 171/106 H 99 06/24/19 11:56 88 16 171/106 H 98 06/24/19 11:46 36.8 C 91 H 20 163/84 H 97 Laboratory Results Short CBC 06/24/19 Range/Units 12:17 WBC 6.44 (4.8-10.8) K/uL Hgb 12.9 (12.0-16.0) g/dL Hct 39.1 (37-47) % Plt Count 165 (130-400) K/uL BMP 06/24/19 12:17 Sodium 138 Potassium 3.6 Chloride 107 Carbon Dioxide 26 BUN 20 H Creatinine 0.89 Glucose 199 H Calcium 8.8 Cardiac Enzymes 06/24/19 Range/Units 12:17 Total Creatine Kinase 81 (26-192) U/L Troponin I < 0.015 (0-0.045) ng/ml Liver Function 06/24/19 Range/Units 12:17 Total Bilirubin 0.5 (0.2-1) mg/dl AST 21 (15-37) U/L ALT 26 (12-78) U/L Alkaline Phosphatase 115 (45-117) U/L Albumin 3.0 L (3.4-5.0) gm/dl Urine 06/24/19 Range/Units 13:02 Urine Color Yellow Urine Appearance Clear (Clear) Urine pH 7.0 (4.5-7.5) Ur Specific [place] 1.008 (1.000-1.030) Urine Protein 2+ H (Negative) Urine Glucose (UA) Negative (Negative) Diagnostic Findings BRAIN MRI: IMPRESSION: 1. Motion degraded exam without acute intracranial abnormality, specifically t here is no evidence of acute or subacute infarct. 2. There are a total of two punctate foci of T2/FLAIR prolongation within the subcortical white matter of the bilateral cerebral hemispheres as above, likely of no clinical significance. No definite evidence to suggest demyelinating disease. 3. Nonspecific prominent anterior and posterior cervical chain lymph nodes are incidentally noted bilaterally. 4. No abnormal enhancement. CERVICAL SPINE MRI: IMPRESSION: 1. No abnormal signal intensity within the cervical spinal cord. 2. Multilevel degenerative disc disease within the mid to lower cervical spine as described above most pronounced at the C4-C5 level which results in mild to moderate central canal narrowing with mild anterior cord deformity. 3. Additional degenerative changes as described above. CXR: IMPRESSION: Negative chest. Code Status & VTE Plan VTE Prophylaxis Plan VTE Prophylaxis will be ordered: Yes Supervising Physician Co-Signing Physician Notes Attending Addendum: care coordinated with ELIZABETH Rees please refer to her notes for full details, I agree with her notes patient seen and examined, records reviewed by myself as well on Exam, patient Seen resting in bed, comfortable, not in distress, in good spirits, very pleasant Reports that 4 weeks ago, she started to have bilateral lower leg weakness, legs feeling tired A week ago she started to have upper extremity weakness as well, described as dropping things from her hands She does have chronic tingling of her hands and feet She denies having any change in vision, difficulty swallowing, or shortness of breath at all She adds that she is unable to get up from laying or sitting position but when assisted to be upright, able to ambulate with no problems Denies fevers or chills, recent illness, diarrhea No other symptom no other symptoms VS noted and reviewed oriented , not in distress, speaks in sentences with no effort nor accessory muscle use normal rate, regular rhythm, no murmurs clear breath sounds bilaterally non distended, soft, nontender no bipedal edema, erythema, warmth no neuro deficits WBC 6.4 Hg 12.9 Crea 0.89 Brain MRI: 1. Motion degraded exam without acute intracranial abnormality, specifically the re is no evidence of acute or subacute infarct. 2. There are a total of two punctate foci of T2/FLAIR prolongation within the subcortical white matter of the bilateral cerebral hemispheres as above, likely of no clinical significance. No definite evidence to suggest demyelinating disease. 3. Nonspecific prominent anterior and posterior cervical chain lymph nodes are incidentally noted bilaterally. 4. No abnormal enhancement. Cervical spine MRI: 1. No abnormal signal intensity within the cervical spinal cord. 2. Multilevel degenerative disc disease within the mid to lower cervical spine as described above most pronounced at the C4-C5 level which results in mild to moderate central canal narrowing with mild anterior cord deformity. 3. Additional degenerative changes as described above. Assessment and plan> 63-year-old female with history of hypertension, hypothyroidism, asthma, major depressive disorder, history of pulmonary embolism, presenting with progressive generalized muscle weakness x4 weeks. she was sent to the hospital by PCP after discussion today with rheumatology and neurology service to rule out Game Boy syndrome. Progressive generalized muscular weakness Possible chronic inflammatory polyneuropathy Rule out Guillan [place] Syndrome -- Brain MRI: No signs of acute process Cervical spine MRI: Degenerative disc disc disease C4-C5 with mild to moderate central canal narrowing --Labs drawn as an outpatient 06/23/2019: So far positive for ELIZABETH, and elevated CRP, full SLE work-up pending results --Discussed with Dr. Damian, recommendations: Obtain MRI of the thoracic, lumbar spine with contrast Then obtain spinal tap Also recommending to obtain: Lyme screen, serum for electrophoresis, acetylcholine antibodies, B12, folate, vitamin D, CPK Respiratory therapist to obtain NIF and vital capacity x 4 hours Hypertension -- Mildly elevated -- Continue losartan Hold HCTZ as patient received gadolinium contrast other diagnoses and plan of care as per ELIZABETH Whitney notes Vipin Kim MD (1) Hypothyroidism Hypothyroidism type: unspecified Qualified Code(s): E03.9 - Hypothyroidism, unspecified (2) Hypertension Hypertension type: essential hypertension Qualified Code(s): I10 - Essential (primary) hypertension
[2019-06-24] MEDS ORDERED: ALBUTEROL HFA 8 GM INHALER INH PRN (19:12)
[2019-06-24] MEDS: MAGNESIUM SULFATE / D5W 1 GM/100 ML BAG IV SCH ×2 (19:46→21:14)
[2019-06-24 20:41] LABS: Folate (Folic Acid) 12.7 ng/ml (>5.38)
[2019-06-24 21:29] LABS: Lyme Ab IgG w/WB Rflx Negative (Negative); Lyme Ab IgM w/WB Rflx Negative (Negative)
[2019-06-25] MEDS ORDERED: LORazepam 0.25 MG/0.5 ML VIAL IV PRN (05:13)
[2019-06-25] MEDS ORDERED: LORazepam 2 MG/4 ML VIAL ONE (05:16)
[2019-06-25] MEDS: LEVOTHYROXINE SODIUM 100 MCG TABLET PO SCH (05:24)
[2019-06-25] MEDS ORDERED: GADOBUTROL 65ML VIAL IV PRN (06:58)
--- NOTE | 2019-06-25 07:10 | Magnetic Resonance Report ---
MR thoracic spine wo/w con HISTORY: Pain weakness TECHNIQUE: Multiplanar multisequence MRI of the thoracic spine was performed both before and after th e intravenous administration of contrast. COMPARISON: None. FINDINGS: Alignment and curvature are intact. No fracture or subluxation. No significant central canal or neura l foraminal narrowing. Normal signal characteristics of the vertebral bodies. Minimal disc desiccatio n. Normal signal characteristics of the thoracic cord. IMPRESSION: Negative study ACT 112: Negative or not required by law. The above report was generated using voice recognition software. It may contain grammatical, syntax or spelling errors. Electronically signed by: Alan Duckworth M.D. 06/25/2019 7:08 AM
--- NOTE | 2019-06-25 07:13 | Electrocardiogram Report ---
Test Reason : Blood Pressure : / mmHG Vent. Rate : 081 BPM Atrial Rate : 081 BPM P-R Int : 196 ms QRS Dur : 074 ms QT Int : 366 ms P-R-T Axes : 039 -06 043 degrees QTc Int : 425 ms Normal sinus rhythm Possible Left atrial enlargement Possible Inferior infarct , age undetermined Abnormal ECG When compared with ECG of 20-MAY-2018 06:26, Borderline criteria for Inferior infarct are now Present Confirmed by Derik Li ([id number]) on 06/25/2019 7:13:05 AM Referred By: REFERRED SELF Confirmed By:Derik Li
--- NOTE | 2019-06-25 07:22 | Magnetic Resonance Report ---
MRI OF THE LUMBAR SPINE WITH AND WITHOUT CONTRAST CLINICAL HISTORY: Weakness. COMPARISON STUDY: No previous studies for comparison. TECHNIQUE: Utilizing a 1.5 Meryl magnet and dedicated coil, multiplanar, multiecho imaging of the luz maria mbar spine was performed before and after uneventful IV administration of 9.7 mL of Gadavist. FINDINGS: For purposes of numbering on this exam, the L5-S1 disc space is assigned to axial image 26 of 29. The conus terminates at the upper L2 level. No intracanalicular mass or fluid collection is noted. This exam is mildly compromised by motion artifact. However, there is suggestion of mild enhancement of se veral nerve roots of the cauda equina, most evident within the anterior nerve roots. No marrow replac ement is present. A hemangioma within the L2 vertebral body is noted. There is a Schmorl's node along the inferior endplate of L2. Paravertebral soft tissues are unremarkable. There is slight anterolist hesis of L4 and L5. L1-2: There is mild disc space narrowing with disc bulge. The central canal and neural foramen are pa tent. L2-3: There is moderate facet arthrosis. There is mild disc bulge. The central canal and neural gorge en are patent. L3-4: There is facet arthrosis with mild disc bulge. The central canal and neural foramen are patent. L4-5: There is mild disc space narrowing with severe facet arthrosis. There is ligamentous hypertroph y. Mild narrowing of the central canal is noted. The neural foramen are patent. L5-S1: There is facet arthrosis. A tiny central disc protrusion is noted. Central canal and neural fo ramen are patent IMPRESSION: 1. Suggestion of mild enhancement of several nerve roots of the cauda equina, more evident within the anterior nerve roots. Although this could be artifactual, abnormal enhancement is favored. This find ing is nonspecific but could be seen in Guillain-[place] syndrome. Additional less likely differential considerations include infectious, granulomatous and neoplastic etiologies. 2. Moderate multilevel facet arthrosis. Mild multilevel degenerative disc disease. ACT 112: Negative or not required by law. Electronically signed by: Gregory More M.D. 06/25/2019 7:21 AM
[2019-06-25] MEDS: ACETAMINOPHEN 325 MG TAB PO PRN ×3 (07:48→21:56)
[2019-06-25] MEDS: LOSARTAN POTASSIUM 50 MG TAB PO SCH (07:51)
[2019-06-25] MEDS: PANTOprazole 40 MG TAB PO SCH (07:52)
[2019-06-25] MEDS: FLUOXETINE HCL 20 MG CAP PO SCH (07:52)
[2019-06-25 08:15] LABS: Hemoglobin 12.4 g/dL (12.0-16.0); Mean Corpuscular Hemoglobin 28.2 pg (25-34); Mean Corpuscular Hgb Conc 32.6 g/dL (32-36); Mean Corpuscular Volume 86.4 fL (80-100); Platelet Count 156 K/uL (130-400); RDW Standard Deviation 41.3 fL (36.4-46.3); White Blood Count 6.02 K/uL (4.8-10.8)
[2019-06-25 08:41] LABS: BUN Creatinine Ratio 25.1 (10-20); C Reactive Protein 0.38 mg/dl (0-0.29); Calcium 8.5 mg/dl (8.5-10.1); Creatinine Clr Calc Pharmacy 94.6 ml/min; Est GFR (African American) 97.6; Est GFR (Non-African American) 84.2; Magnesium 2.1 mg/dl (1.8-2.4); Potassium 3.7 mmol/L (3.5-5.1)
[2019-06-25] MEDS ORDERED: hydroCHLOROthiazide 25 MG TAB PO SCH (09:00)
[2019-06-25] MEDS ORDERED: cefTRIAXone SODIUM 1,000 MG in DEXTROSE 5% 50 ML IV SCH (09:15)
[2019-06-25] MEDS: cefTRIAXone SODIUM 2,000 MG in DEXTROSE 5% 50 ML IV SCH (09:57)
--- NOTE | 2019-06-25 10:41 | Fluoroscopy Report ---
FLUOROSCOPICALLY GUIDED LUMBAR PUNCTURE CLINICAL HISTORY: weakness possible polyneuropathy FLUOROSCOPY TIME: 0.7 minutes. NUMBER OF FLUOROSCOPIC IMAGES: 3 PROCEDURE: The procedure, risks and benefits were discussed with the patient including the risk of s dennis headache, bleeding and infection. The patient agreed to the procedure and informed written cons ent was obtained. The procedure was performed by Dr. More following a timeout. The right L4-L5 i nterlaminar space was targeted. Skin overlying the space was prepped and draped in sterile fashion an d local anesthesia was achieved with 1% lidocaine. Under intermittent fluoroscopic guidance, a 5 inch , 22-gauge spinal needle was directed into the thecal sac with immediate return of cerebrospinal flui d. CSF was slightly blood-tinged but quickly cleared. A total of 8 cc was collected in 4 vials and se nt to the laboratory as ordered. The needle was removed. The patient tolerated the procedure well and no immediate complications were evident. IMPRESSION: Successful fluoroscopically guided lumbar puncture with collection of 8 cc of CSF sent to the laboratory for analysis as ordered. CSF initially slightly blood-tinged but quickly cleared. ACT 112: Negative or not required by law. Electronically signed by: Gregory More M.D. 06/25/2019 10:40 AM
[2019-06-25 11:02] LABS: Appearance CSF Clear; CSF Count Tube # 3; CSF Xanthrochromic No xanthochromia; Color CSF Colorless; Red Blood Cell CSF (A) 34 /uL (0-); Red Blood Cell CSF (B) 28 /uL (0-); White Blood Cell CSF (A) 2 /uL (0-5); White Blood Cell CSF (B) 4 /uL (0-5)
[2019-06-25 11:08] LABS: Total Protein CSF 80.2 mg/dl (15-45)
--- NOTE | 2019-06-25 13:35 | Hospitalist Progress Note ---
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 muscles weakness involving upper and lower extremities with numbness involving hands and soles of the feet worse for the last 1 week Lumbar puncture showed albuminocytologic dissociation with protein of more than 80 and normal cell count Appreciate neurology input and recommendation Will send GQ 1B antibody and CK level Start with IVIG 400 mg/kg/day for 5 days Has vitamin D deficiency We will start supplement (2) Weakness: Pt is 63 y/o F with PMH hypothyroidism, Hartman's esophagus, HTN, dyslipidemia, depression, asthma, IBS presented to ER with complaint of lower extremity weakness a couple of weeks ago, upper extremity weakness past week. There was initial concern for possible guillain barre and pt sent to ER for evaluation. In ER vitals stable. Pt noted to have proximal muscle weakness and hyporeflexia. No SOB DDX: Polyneuropathy, rule out Guillain-Smith syndrome Neurology consulted, Dr. Damian [place] [facility] [place] [facility] [place]. Dr. Damian recontacted will admit patient here recommends thoracic and lumbar spine MRI with contrast, recommends lumbar puncture after review of MRI, recommends Lyme, serum protein electrophoresis, B12, folate, vitamin D levels, CPK, acetylcholine receptor binding antibody Remains stable without any more neuro symptoms then proximal muscles weakness involving the upper and lower limbs and numbness involving the hands and soles of the feet Vitamin D level is noted to be low otherwise other test came out to be negative except: Status post lumbar puncture which shows increased protein with normal cytology 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 Does not have any respiratory symptoms (3) Hypothyroidism: TSH: 1.7 -Continue levothyroxine (4) Depression: -Continue fluoxetine DVT Prophylaxis -SCDs Full code as per discussion with pt Follows with Dr Mary Olsen for routine care (5) Hypomagnesemia: Magnesium: 1.6 Normalized (6) Hypertension: Stable -Continue losartan, HCTZ -Remains on the upper side but reasonable (7) Barretts esophagus: -Continue PPI Admission and Anticipated Discharge Date Admission Date: June 24, 2019 Subjective The patient was seen and examined in telemetry unit 63-year-old female with significant past medical history of hypothyroidism, Hartman's esophagus, hypertension, hyperlipidemia, depression, asthma and IBS presented to ER with increasing weakness involving the proximal limb muscles for the last 7 days. She also complained to have numbness involving the hands and feet. Denies any joint pain, any other neurological symptoms, any fever and/or chills, any abdominal pain nausea and/or vomiting Review of Systems Review of Systems: All systems reviewed and are unremarkable except as noted below Physical Exam Physical Exam: Lying in bed comfortably but looks depressed Constitutional: well developed, well nourished and + obese; no acute distress and not ill appearing Eyes: PERRL, conjunctivae normal, anicteric sclerae ENMT: external ear and nose normal, oropharynx normal Neck: trachea midline, no thyromegaly Respiratory: normal respiratory effort Auscultation: lungs clear to auscultation bilaterally Cardiovascular: Rate/Rhythm: regular rate and regular rhythm Heart Sounds: no murmur Gastrointestinal (Abdomen): Inspection/Auscultation: abdomen normal to inspection and normal bowel sounds Percussion/Palpation: abdomen soft; abdomen nontender Musculoskeletal: No acute arthritis involving any joints Neurologic: moves all extremities Proximal limb muscles weakness, DTRs could not be elicited. No significant sensory impairment Results & Data ([facility]) Vital Signs (Past 12 Hours) Vital Signs Temp Pulse Pulse Pulse Resp BP Pulse Ox 06/25/19 10:55 36.3 C L 80 14 154/87 H 98 06/25/19 07:34 87 06/25/19 07:28 36.3 C L 81 18 147/82 H 94 Laboratory Results Short CBC 06/25/19 Range/Units 08:01 WBC 6.02 (4.8-10.8) K/uL Hgb 12.4 (12.0-16.0) g/dL Hct 38.0 (37-47) % Plt Count 156 (130-400) K/uL BMP 06/25/19 08:01 Sodium 140 Potassium 3.7 Chloride 109 H Carbon Dioxide 29 BUN 19 H Creatinine 0.75 Glucose 104 H Calcium 8.5 Cardiac Enzymes 06/24/19 Range/Units 19:56 Total Creatine Kinase 61 (26-192) U/L Urine 06/24/19 Range/Units 13:02 Urine Color Yellow Urine Appearance Clear (Clear) Urine pH 7.0 (4.5-7.5) Ur Specific [place] 1.008 (1.000-1.030) Urine Protein 2+ H (Negative) Urine Glucose (UA) Negative (Negative) Medications Administered Current Inpatient Medications Acetaminophen (Tylenol) 650 mg PO Q4H PRN PRN Reason: Pain or Fever Stop: 07/24/19 19:11 Last Admin: 06/25/19 12:14 Dose: 650 mg Documented by: Albuterol (Ventolin Hfa) 2 puffs INH Q6H PRN PRN Reason: Shortness Of Breath Stop: 07/24/19 19:11 Fluoxetine HCl (Prozac) 20 mg PO DAILY [facility] Stop: 07/25/19 08:59 Last Admin: 06/25/19 07:52 Dose: 20 mg Documented by: Gadobutrol (Gadavist 65ml) 9.7 ml IV ONCE PRN PRN Reason: Interaction Checking Stop: 06/29/19 06:57 Last Admin: 06/25/19 06:38 Dose: 9.7 ml Documented by: Lorazepam (Ativan) 0.25 mg in 0.5 mls @ 0.5 mls/min IV Q1H PRN PRN Reason: Anxiety/Agitation Stop: 07/25/19 05:12 Ceftriaxone Sodium 2,000 mg/ (Dextrose) 70 mls @ 140 mls/hr IV Q24H [facility] Stop: 06/30/19 09:29 Last Infusion: 06/25/19 11:00 Dose: Infused Documented by: Levothyroxine Sodium (Synthroid) 100 mcg PO DAILYBB [facility] Stop: 07/25/19 06:29 Last Admin: 06/25/19 05:24 Dose: 100 mcg Documented by: Losartan Potassium (Cozaar) 100 mg PO DAILY [facility] Stop: 07/25/19 08:59 Last Admin: 06/25/19 07:51 Dose: 100 mg Documented by: Pantoprazole Sodium (Protonix) 40 mg PO DAILY [facility] Stop: 07/25/19 08:59 Last Admin: 06/25/19 07:52 Dose: 40 mg Documented by: (1) Hypothyroidism Hypothyroidism type: unspecified Qualified Code(s): E03.9 - Hypothyroidism, unspecified (2) Hypertension Hypertension type: essential hypertension Qualified Code(s): I10 - Essential (primary) hypertension
--- NOTE | 2019-06-25 13:36 | Neurology Consultation ---
Date of Consultation June 25, 2019 Assessment & Plan (1) Guillain Smith syndrome: 1. MRI brain - no acute findings 2. MRI c spine- some spinal cord narrowing 3. MRI T spine - no cord compression 4. MRI L spine- mild enhancement of several nerve roots in cauda equina. 5. LP - keep flat for 2 hours slowly elevate head- keep well hydrated 6. Vit D deficient- start supplement 7. IVIG 0.4 g/kg x 5 days -verify with pharmacy 8. PT/OT for discharge needs and rehab prior to return home 9. if increase in symptoms or respiratory issues would need transfer to higher level of care for plasma exchange. (2) Weakness: Supervising Physician Co-Signing Physician Notes Patient was seen and examined. Agree with Indu Adams PA-C. A 63 year old woman with no significant PMH admitted for ascending weakness 2 weeks. PAtient was asymptomatic 2 weeks ago. Then developed weakness in both legs. No sensory changes or pain. Then symptoms progressed to her arms. She now has some paresthesias in feet which is new. Denies GI Symptoms. Denies diplopia, dysphagia, or SOB. On examine she appears in no acute distress. Speach is clear. comphrehension is intact. EOMI. Some ataxia with finger to nose on right. Bilateral proximal hip flexion weakness 3-/5. Ankle dorsiflexion weakness 4/5. Unable to sit up in bed. She had interosseos and shoulder abduction weakness 4/5. Reflexes are absent at the knees and ankles. 1+ biceps on right. Sensation to light touch and position sense is intact. Tongue midline. 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 - Recommend starting IVIG 400 mg/kg 5days - Neuro checks Q2 hr - FVC/NIF daily - PT/OT - Please check CK and Anti GQ1B antibody Neurology will continue to follow. History of Present Illness Reason for Consultation: weakness Requesting Physician: Viviana Freeman MD Attending Physician: Viviana Freeman MD History of Present Illness Mayi is a 63 year old female with PMH hypothyroidism, Hartman's esophagus, HTN, HLD, depression, asthma, IBS present with LE weakness. She states she thinks she has had weakness in her legs for a while but in the last 2 weeks it has gotten worse. Her legs feeling heavy and noted having difficulty climbing stairs secondary to leg weakness and has had multiple falls. She also started to notice her arm and hand weakness bilaterally. She is having trouble gripping things and has been dropping objects. She fell and was unable to get herself off the floor and was down for about an hour until someone could come and help. She had been able to push up with her arms but now she is unable to do push herself up. She is walking she is able to ambulate however her legs feel stiff. she has chronic tingling sensation to bilateral hands and fingers for years denies any increased. The is a numb sensation to plantar surface bilateral feet and palms of hands. she was seen in clinic yesterday and had labs including sed rate, CRP, rheumatoid factor, ELIZABETH and was started on prednisone. She states there is a extensive CA history in her family but no neurologic issues she is aware of. Her has a diagonsis of MS. denies CP, SOB, abdominal pain, one sided weakness, numbness tingling, N, V, vision changes, bowel or bladder issues. Allergies Allergy/AdvReac Type Severity Reaction Status Date / Time sucralfate [From Carafate] Allergy Mild Verified 06/24/19 12:46 hornet venom Allergy Unknown ANAPHYLAXIS Verified 06/24/19 12:46 Penicillins Allergy Unknown RASH Unverified 06/24/19 12:46 Sulfa (Sulfonamide Allergy Unknown RASH Verified 06/24/19 12:46 Antibiotics) Home Medications Home Medications Medication Instructions Recorded Confirmed Type albuterol sulfate [Ventolin HFA] 2 puff INHALATION Q6H PRN 05/18/18 06/24/19 History calcium polycarbophil [FiberCon] 1,250 mg PO QAM 05/18/18 06/24/19 History fluoxetine 20 mg PO DAILY 05/18/18 06/24/19 History levothyroxine 100 mcg PO QAM 05/18/18 06/24/19 History omeprazole 20 mg PO DAILY 05/18/18 06/24/19 History tincohm-lfabyxsedabxn-ajuqinvy 1 tab PO Q6H PRN 06/24/19 06/24/19 History [Excedrin Migraine] hydrochlorothiazide 25 mg PO DAILY 06/24/19 06/24/19 History losartan 100 mg PO DAILY 06/24/19 06/24/19 History Patient History Medical History (Updated 06/25/19 @ 13:30 by Viviana Freeman MD) Asthma (Chronic) Hartman's esophagus with esophagitis Barretts esophagus Depression HLD (hyperlipidemia) Hypertension (Chronic) Hypothyroidism MDD (major depressive disorder) Surgical History History of bilateral breast reduction surgery 05/12/18 Dr. Dom Cameron [facility] History of colonoscopy with polypectomy History of esophagogastroduodenoscopy (EGD) History of fusion of cervical spine History of right knee joint replacement (Resolved) History of total hysterectomy with bilateral salpingo-oophorectomy (BSO) Social History (Updated 06/24/19 @ 17:40 by Christina Rees PA-C) Preferred Language: Kazakh Communication Ability: Effective Packing Attendant Required: No Beliefs That Will Affect Care: None marital status: Current Living Situation: Spouse Feels Safe at Home: Yes Smoking Status: Never smoker Hx Alcohol Use: Yes Alcohol type: beer, wine and other Alcohol type Comment: 8 ounces once a week Hx Substance Use: No Physical Exam Physical Exam: Physical Exam: Constitutional: appearance nourished, obese Ears, Nose, Mouth and Throat: mucous membranes moist, no injection and skin normal, eyes normal Cardiovascular: normal S-1 and S-2 and regular rate and rhythm Respiratory: course breath sounds Musculoskeletal: no peripheral edema and good distal pulses Skin: no stigmata of neurocutaneous disease noted and normal and intact Eyes: extraocular muscles intact (EOMI) and pupils equal, round and reactive to light (PERRL) NEUROLOGIC EXAMINATION: Mental status: Alert and interactive Oriented to full date and location Oriented to person Speech fluent with no evidence of aphasia Cranial Nerves smile eye brow raise symmetric Reflexes: Deep tendon reflexes absent LE bilateral knee jerk ankle jerk Sensory: decreased sensations to light and cool touch intact plantar reflexes with down going toes Coordination: finger to nose no bipass Gait/Stance: Posture lying flat due to recent LP Motor: Negative for pronator drift of out stretched arms with eyes closed. Strength: hand promotions executive producer biceps triceps bilaterall 4/5. hip flex 3/5 bilaterally Results & Data Vital Signs (Past 12 Hours) Vital Signs Temp Pulse Pulse Pulse Resp BP Pulse Ox 06/25/19 10:55 36.3 C L 80 14 154/87 H 98 06/25/19 07:34 87 06/25/19 07:28 36.3 C L 81 18 147/82 H 94 Laboratory Results Abnormal lab results 06/24/19 06/25/19 06/25/19 Range/Units 19:56 08:01 08:05 ESR 25 H (0-21) mm/hr Chloride 109 H (98-107) mmol/L Anion Gap 2.0 L (3-11) BUN 19 H (7-18) mg/dl BUN/Creatinine Ratio 25.1 H (10-20) Glucose 104 H (70-99) mg/dl C-Reactive Protein 0.38 H (0-0.29) mg/dl 25-OH Vitamin D Total 18.2 L (30-100) ng/ml CSF Total Protein (15-45) mg/dl 06/25/19 Range/Units 10:30 ESR (0-21) mm/hr Chloride (98-107) mmol/L Anion Gap (3-11) BUN (7-18) mg/dl BUN/Creatinine Ratio (10-20) Glucose (70-99) mg/dl C-Reactive Protein (0-0.29) mg/dl 25-OH Vitamin D Total (30-100) ng/ml CSF Total Protein 80.2 H (15-45) mg/dl Diagnostic Findings MRI brain- Motion degraded exam without acute intracranial abnormality, specifically there is no evidence of acute or subacute infarct. There are a total of two punctate foci of T2/FLAIR prolongation within the subcortical white matter of the bilateral cerebral hemispheres as above, likely of no clinical significance. No definite evidence to suggest demyelinating disease. Nonspecific prominent anterior and posterior cervical chain lymph nodes are incidentally noted bilaterally. No abnormal enhancement. MRI c spine-No abnormal signal intensity within the cervical spinal cord. Multi level degenerative disc disease within the mid to lower cervical spine as described above most pronounced at the C4-C5 level which results in mild to moderate central canal narrowing with mild anterior cord deformity. CXR-Negative chest. MRI lumbar spine-Suggestion of mild enhancement of several nerve roots of the cauda equina, more evident within the anterior nerve roots. Although this could be artifactual, abnormal enhancement is favored. This finding is nonspecific but could be seen in Guillain-[place] syndrome. Additional less likely differential considerations include infectious, granulomatous and neoplastic etiologies. Moderate multilevel facet arthrosis. Mild multilevel degenerative disc disease. MRI thoracic spine-Alignment and curvature are intact. No fracture or subluxation. No significant central canal or neural foraminal narrowing. Normal signal characteristics of the vertebral bodies. Minimal disc desiccation. Normal signal characteristics of the thoracic cord.
[2019-06-25] MEDS ORDERED: ERGOCALCIFEROL 50,000 UNITS CAP PO SCH (15:00)
[2019-06-25] MEDS: IMMUNE GLOBULIN IV SCH (16:56)
[2019-06-25] MEDS: IMMUNE GLOBULIN (HUMAN) 200 ML IV SCH (18:12)
[2019-06-26] MEDS: TRAMADOL HCL 50 MG TABLET PO PRN ×3 (00:37→12:25)
[2019-06-26] MEDS: LEVOTHYROXINE SODIUM 100 MCG TABLET PO SCH (06:11)
[2019-06-26] MEDS: LOSARTAN POTASSIUM 50 MG TAB PO SCH (08:24)
[2019-06-26] MEDS: FLUOXETINE HCL 20 MG CAP PO SCH (08:25)
[2019-06-26] MEDS: PANTOprazole 40 MG TAB PO SCH (08:25)
[2019-06-26] MEDS: cefTRIAXone SODIUM 2,000 MG in DEXTROSE 5% 50 ML IV SCH (08:30)
[2019-06-26 08:42] LABS: Basophils # (auto) 0.02 K/uL (0-0.2); Basophils % (auto) 0.4 %; Eosinophils # (auto) 0.06 K/uL (0-0.5); Eosinophils % (auto) 1.1 %; Hematocrit (blood only) 38.2 % (37-47); Hemoglobin 12.5 g/dL (12.0-16.0); Immature Granulocytes # (auto) 0.01 K/uL (0.00-0.02); Immature Granulocytes % (auto) 0.2 %; Lymphocytes # (auto) 0.74 K/uL (1.2-3.4); Mean Corpuscular Hemoglobin 28.2 pg (25-34); Mean Corpuscular Hgb Conc 32.7 g/dL (32-36); Mean Platelet Volume 10.4 fL (7.4-10.4); Monocytes # (auto) 0.36 K/uL (0.11-0.59); Monocytes % (auto) 6.8 %; Neutrophils # (auto) 4.09 K/uL (1.4-6.5); Neutrophils % (auto) 77.5 %; Platelet Count 168 K/uL (130-400); RDW Standard Deviation 40.9 fL (36.4-46.3); Red Blood Count 4.44 M/uL (4.2-5.4); White Blood Count 5.28 K/uL (4.8-10.8)
[2019-06-26 09:16] LABS: BUN Creatinine Ratio 27.3 (10-20); Calcium 8.5 mg/dl (8.5-10.1); Creatinine Clr Calc Pharmacy 94.5 ml/min; Est GFR (African American) 96.1; Est GFR (Non-African American) 82.9; Magnesium 1.7 mg/dl (1.8-2.4); Phosphorus 3.5 mg/dl (2.5-4.9)
--- NOTE | 2019-06-26 10:37 | Hospitalist Progress Note ---
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 muscles weakness involving upper and lower extremities with numbness involving hands and soles of the feet worse for the last 1 week Lumbar puncture showed albuminocytologic dissociation with protein of more than 80 and normal cell count Appreciate neurology input and recommendation Will send GQ 1B antibody and CK level Start with IVIG 400 mg/kg/day for 5 day Day #2 of IVIG A bit better symptomatically, denies any other significant symptoms Has vitamin D deficiency We will start supplement (2) Weakness: Pt is 63 y/o F with PMH hypothyroidism, Hartman's esophagus, HTN, dyslipidemia, depression, asthma, IBS presented to ER with complaint of lower extremity weakness a couple of weeks ago, upper extremity weakness past week. There was initial concern for possible guillain barre and pt sent to ER for evaluation. In ER vitals stable. Pt noted to have proximal muscle weakness and hyporeflexia. No SOB DDX: Polyneuropathy, rule out Guillain-Smith syndrome Neurology consulted, [place]. Damian [place] [facility] [place] [facility] [place] Dr. Damian recontacted will admit patient here recommends thoracic and lumbar s pine MRI with contrast, recommends lumbar puncture after review of MRI, recommends Lyme, serum protein electrophoresis, B12, folate, vitamin D levels, CPK, acetylcholine receptor binding antibody Remains stable without any more neuro symptoms then proximal muscles weakness involving the upper and lower limbs and numbness involving the hands and soles of the feet Vitamin D level is noted to be low otherwise other test came out to be negative except: Status post lumbar puncture which shows increased protein with normal cytology 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 Does not have any respiratory symptoms Motor function remains unaffected so far (3) Hypothyroidism: TSH: 1.7 -Continue levothyroxine (4) Depression: -Continue fluoxetine DVT Prophylaxis -SCDs Full code as per discussion with pt Follows with Dr Mary Olsen for routine care (5) Hypomagnesemia: Magnesium: 1.6 Normalized (6) Hypertension: Stable -Continue losartan, HCTZ -Remains on the upper side but reasonable (7) Barretts esophagus: -Continue PPI Admission and Anticipated Discharge Date Admission Date: June 24, 2019 Subjective The patient was seen and examined in telemetry unit 63-year-old female with significant past medical history of hypothyroidism, Hartman's esophagus, hypertension, hyperlipidemia, depression, asthma and IBS presented to ER with increasing weakness involving the proximal limb muscles for the last 7 days. She also complained to have numbness involving the hands and feet. Denies any joint pain, any other neurological symptoms, any fever and/or chills, any abdominal pain nausea and/or vomiting 06/26/2019 The patient was seen and examined in telemetry unit She has been getting IVIG for Guillain-Smith syndrome She feels a little bit better regarding symptoms of numbness and tingling in the feet Denies any other symptoms Review of Systems Review of Systems: All systems reviewed and are unremarkable except as noted below Neurologic: Sensory sensation seems to be improving but motor function remains unaffected so far Physical Exam Physical Exam: Lying in bed comfortably Constitutional: well developed, well nourished and + obese; no acute distress and not ill appearing Eyes: PERRL, conjunctivae normal, anicteric sclerae ENMT: external ear and nose normal, oropharynx normal Neck: trachea midline, no thyromegaly Respiratory: normal respiratory effort Auscultation: lungs clear to auscultation bilaterally Cardiovascular: Rate/Rhythm: regular rate and regular rhythm Heart Sounds: no murmur Gastrointestinal (Abdomen): Inspection/Auscultation: abdomen normal to inspection and normal bowel sounds Percussion/Palpation: abdomen soft; abdomen nontender Neurologic: Sensory symptoms seems to be improving motor function to the proximal muscles remain unaffected since first dose of IVIG Results & Data ([facility]) Vital Signs (Past 12 Hours) Vital Signs Temp Pulse Pulse Pulse Resp BP Pulse Ox 06/26/19 07:36 73 06/26/19 07:32 36.8 C 69 18 150/87 H 97 06/26/19 05:29 36.5 C 77 18 164/91 H 95 06/25/19 23:23 36.8 C 74 18 176/95 H 94 Laboratory Results Short CBC 06/26/19 Range/Units 08:29 WBC 5.28 (4.8-10.8) K/uL Hgb 12.5 (12.0-16.0) g/dL Hct 38.2 (37-47) % Plt Count 168 (130-400) K/uL BMP 06/26/19 08:29 Sodium 139 Potassium 4.0 Chloride 108 H Carbon Dioxide 28 BUN 21 H Creatinine 0.76 Glucose 169 H Calcium 8.5 Cardiac Enzymes 03/20/20 03/20/20 Range/Units 16:36 21:44 Total Creatine Kinase 55 49 (26-192) U/L Medications Administered Current Inpatient Medications Acetaminophen (Tylenol) 650 mg PO Q4H PRN PRN Reason: Pain or Fever Stop: 07/24/19 19:11 Last Admin: 06/25/19 21:56 Dose: 650 mg Documented by: Albuterol (Ventolin Hfa) 2 puffs INH Q6H PRN PRN Reason: Shortness Of Breath Stop: 07/24/19 19:11 Ergocalciferol (Vitamin D2) 50,000 units PO Q7D@0900 [facility] Stop: 07/25/19 14:59 Last Admin: 06/25/19 16:08 Dose: 50,000 units Documented by: Fluoxetine HCl (Prozac) 20 mg PO DAILY [facility] Stop: 07/25/19 08:59 Last Admin: 06/26/19 08:25 Dose: 20 mg Documented by: Gadobutrol (Gadavist 65ml) 9.7 ml IV ONCE PRN PRN Reason: Interaction Checking Stop: 06/29/19 06:57 Last Admin: 06/25/19 06:38 Dose: 9.7 ml Documented by: Lorazepam (Ativan) 0.25 mg in 0.5 mls @ 0.5 mls/min IV Q1H PRN PRN Reason: Anxiety/Agitation Stop: 07/25/19 05:12 Ceftriaxone Sodium 2,000 mg/ (Dextrose) 70 mls @ 140 mls/hr IV Q24H [facility] Stop: 06/30/19 09:29 Last Infusion: 06/26/19 09:11 Dose: Infused Documented by: Immune Globulin (Privigen 10% Vial) 100 mls @ 0 mls/hr IV DAILY@1600 [facility]; Protocol Stop: 06/29/19 23:59 Last Infusion: 06/25/19 18:26 Dose: Infused Documented by: Immune Globulin (Privigen 10%) 200 mls @ 0 mls/hr IV DAILY@1630 [facility]; Protocol Stop: 06/29/19 23:59 Last Infusion: 06/25/19 21:15 Dose: Infused Documented by: Levothyroxine Sodium (Synthroid) 100 mcg PO DAILYBB [facility] Stop: 07/25/19 06:29 Last Admin: 06/26/19 06:11 Dose: 100 mcg Documented by: Losartan Potassium (Cozaar) 100 mg PO DAILY [facility] Stop: 07/25/19 08:59 Last Admin: 06/26/19 08:24 Dose: 100 mg Documented by: Morphine Sulfate (Morphine Sulfate) 4 mg IV Q4H PRN PRN Reason: Pain Stop: 07/10/19 00:12 Pantoprazole Sodium (Protonix) 40 mg PO DAILY [facility] Stop: 07/25/19 08:59 Last Admin: 06/26/19 08:25 Dose: 40 mg Documented by: Tramadol HCl (Ultram) 25 - 50 mg PO Q4H PRN PRN Reason: Pain Stop: 07/26/19 00:12 Last Admin: 06/26/19 08:28 Dose: 50 mg Documented by: (1) Hypothyroidism Hypothyroidism type: unspecified Qualified Code(s): E03.9 - Hypothyroidism, unspecified (2) Hypertension Hypertension type: essential hypertension Qualified Code(s): I10 - Essential (primary) hypertension
--- NOTE | 2019-06-26 12:14 | Neurology Progress Note ---
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 Recommend continue IVIG 400 mg/kg x 5 days. Day #2 of 5. Continue PT OT daily. Neuro checks every 4 hours. FVC/NIF daily. (2) Weakness: Admission and Anticipated Discharge Date Admission Date: June 24, 2019 Subjective Patient was seen and examined. She reports doing ok today. Denies any progression. Reports no significant change. Continues to have some numbness in her feet. Notes mild constipation. Denies any URI or GI illness recently. Physical Exam Physical Exam: EXAM: Constitutional: appearance normally developed Face: normocephalic and atraumatic Eyes: normal lids, normal conjunctiva Neck: supple Respiratory: normal effort Cardiovascular: normal pulses Abdomen: non distended Skin: no rashes, lesions, or ulcers noted Psychiatric: normal mood and normal affect NEUROLOGIC EXAMINATION: Appearance: no acute distress Orientation: awake, alert and oriented x 3 Mental Status: alert Attention: normal Knowledge: appropriate Language: no aphasia Speech: no dysarthria Cranial Nerves: CN 2 - no visual defect on confrontation and pupils round, equal, reactive to light CN 3, 4, 6 - extra-ocular movements intact CN 5 - facial sensation intact CN 7 - no facial asymmetry CN 8 - intact hearing CN 9, 10 - palate symmetric CN 11 - good shoulder shrug CN 12 - tongue midline Gait: Unable to ambulate coordination: Mild ataxia with finger-nose testing prickly on the right sensory: intact and symmetric to light touch Muscle Tone: normal Muscle exam: 4/5 bilateral ankle dorsiflexion, 3/5 with hip flexion, 4/5 in shoulder abduction reflexes: Absent reflexes at the knees and ankles. Results & Data ([facility]) Vital Signs (Past 12 Hours) Vital Signs Temp Pulse Pulse Pulse Resp BP Pulse Ox 06/26/19 11:38 37.1 C 74 20 148/91 H 97 06/26/19 11:32 37.1 C 74 20 148/91 H 97 06/26/19 07:36 73 06/26/19 07:32 36.8 C 69 18 150/87 H 97 06/26/19 05:29 36.5 C 77 18 164/91 H 95 Laboratory Results CK level normal AQ G1 B antibody pending
[2019-06-26] MEDS: IMMUNE GLOBULIN IV SCH (15:59)
[2019-06-26] MEDS: IMMUNE GLOBULIN (HUMAN) 200 ML IV SCH (17:17)
[2019-06-26] MEDS: MoRPHine SULFATE 4 MG/ML 1 ML CARP\\VIAL IV PRN ×2 (18:16→23:13)
[2019-06-27] MEDS: LEVOTHYROXINE SODIUM 100 MCG TABLET PO SCH (05:22)
[2019-06-27] MEDS: PANTOprazole 40 MG TAB PO SCH (08:40)
[2019-06-27] MEDS: LOSARTAN POTASSIUM 50 MG TAB PO SCH (08:40)
[2019-06-27] MEDS: FLUOXETINE HCL 20 MG CAP PO SCH (08:40)
[2019-06-27] MEDS: TRAMADOL HCL 50 MG TABLET PO PRN ×2 (08:43→19:48)
[2019-06-27] MEDS: cefTRIAXone SODIUM 2,000 MG in DEXTROSE 5% 50 ML IV SCH (08:44)
[2019-06-27] MEDS ORDERED: DOCUSATE SODIUM 100 MG CAP PO ONE (09:18)
[2019-06-27] MEDS: POLYETHYLENE (MIRALAX) 17 GM PACK PO SCH (09:54)
--- NOTE | 2019-06-27 11:40 | Hospitalist Progress Note ---
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 involving upper and lower extremities with numbness involving hands and soles of the feet worse for the last 1 week Lumbar puncture showed albuminocytologic dissociation with protein of more than 80 and normal cell count Appreciate neurology input and recommendation Will send GQ 1B antibody and CK level Start with IVIG 400 mg/kg/day for 5 day Day #3 of IVIG A bit better symptomatically, denies any other significant symptoms Remains stable without any new symptoms or progression of symptoms Will start PT and OT evaluation Has vitamin D deficiency We will start supplement (2) Weakness: Pt is 63 y/o F with PMH hypothyroidism, Hartman's esophagus, HTN, dyslipidemia, depression, asthma, IBS presented to ER with complaint of lower extremity weakness a couple of weeks ago, upper extremity weakness past week. There was initial concern for possible guillain barre and pt sent to ER for evaluation. In ER vitals stable. Pt noted to have proximal muscle weakness and hyporeflexia. No SOB DDX: Polyneuropathy, rule out Guillain-Smith syndrome Neurology consulted, Dr. Damian [place] [facility] [place] [facility] [place]. Dr. Damian recontacted will admit patient here recommends thoracic and lumbar spine MRI with contrast, recommends lumbar puncture after review of MRI, recommends Lyme, serum protein electrophoresis, B12, folate, vitamin D levels, CPK, acetylcholine receptor binding antibody Remains stable without any more neuro symptoms then proximal muscles weakness involving the upper and lower limbs and numbness involving the hands and soles of the feet Vitamin D level is noted to be low otherwise other test came out to be negative except: Status post lumbar puncture which shows increased protein with normal cytology 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 Does not have any respiratory symptoms Motor function remains unaffected so far Stable without any deterioration (3) Hypothyroidism: TSH: 1.7 -Continue levothyroxine (4) Depression: -Continue fluoxetine DVT Prophylaxis -SCDs Full code as per discussion with pt Follows with Dr Mary Olsen for routine care (5) Hypomagnesemia: Magnesium: 1.6 Normalized (6) Hypertension: Stable -Continue losartan, HCTZ -Remains on the upper side but reasonable (7) Barretts esophagus: -Continue PPI Admission and Anticipated Discharge Date Admission Date: June 24, 2019 Subjective The patient was seen and examined in telemetry unit 63-year-old female with significant past medical history of hypothyroidism, Hartman's esophagus, hypertension, hyperlipidemia, depression, asthma and IBS presented to ER with increasing weakness involving the proximal limb muscles for the last 7 days. She also complained to have numbness involving the hands and feet. Denies any joint pain, any other neurological symptoms, any fever and/or chills, any abdominal pain nausea and/or vomiting 06/26/2019 The patient was seen and examined in telemetry unit She has been getting IVIG for Guillain-Smith syndrome She feels a little bit better regarding symptoms of numbness and tingling in the feet Denies any other symptoms 06/27/2019 The patient was seen and examined in telemetry unit She remains stable and feels that her symptoms have not been improved She complains of constipation Denies any other significant symptoms Review of Systems Review of Systems: All systems reviewed and are unremarkable except as noted below Neurologic: Sensory sensation seems to be improving but motor function remains unaffected so far Physical Exam Physical Exam: Lying in bed comfortably Constitutional: well developed, well nourished and + obese; no acute distress and not ill appearing Eyes: PERRL, conjunctivae normal, anicteric sclerae ENMT: external ear and nose normal, oropharynx normal Neck: trachea midline, no thyromegaly Respiratory: normal respiratory effort Auscultation: lungs clear to auscultation bilaterally Cardiovascular: Rate/Rhythm: regular rate and regular rhythm Heart Sounds: no murmur Gastrointestinal (Abdomen): Inspection/Auscultation: abdomen normal to inspection and normal bowel sounds Percussion/Palpation: abdomen soft; abdomen nontender Musculoskeletal: No acute arthritis in any joints Neurologic: moves all extremities Proximal muscles are weak compared with distal, in upper and lower extremities Results & Data ([facility]) Vital Signs (Past 12 Hours) Vital Signs Temp Pulse Pulse Resp BP BP Pulse Ox 06/27/19 10:50 36.4 C L 80 20 144/86 H 95 06/27/19 07:37 79 06/27/19 07:05 36.5 C 75 19 159/79 H 96 06/27/19 04:35 36.9 C 87 18 148/78 H 95 06/26/19 23:40 36.6 C 81 18 165/77 H 96 06/26/19 23:37 81 Medications Administered Current Inpatient Medications Acetaminophen (Tylenol) 650 mg PO Q4H PRN PRN Reason: Pain or Fever Stop: 07/24/19 19:11 Last Admin: 06/25/19 21:56 Dose: 650 mg Documented by: Albuterol (Ventolin Hfa) 2 puffs INH Q6H PRN PRN Reason: Shortness Of Breath Stop: 07/24/19 19:11 Ergocalciferol (Vitamin D2) 50,000 units PO Q7D@0900 [facility] Stop: 07/25/19 14:59 Last Admin: 06/25/19 16:08 Dose: 50,000 units Documented by: Fluoxetine HCl (Prozac) 20 mg PO DAILY [facility] Stop: 07/25/19 08:59 Last Admin: 06/27/19 08:40 Dose: 20 mg Documented by: Gadobutrol (Gadavist 65ml) 9.7 ml IV ONCE PRN PRN Reason: Interaction Checking Stop: 06/29/19 06:57 Last Admin: 06/25/19 06:38 Dose: 9.7 ml Documented by: Lorazepam (Ativan) 0.25 mg in 0.5 mls @ 0.5 mls/min IV Q1H PRN PRN Reason: Anxiety/Agitation Stop: 07/25/19 05:12 Ceftriaxone Sodium 2,000 mg/ (Dextrose) 70 mls @ 140 mls/hr IV Q24H [facility] Stop: 06/30/19 09:29 Last Infusion: 06/27/19 09:43 Dose: Infused Documented by: Immune Globulin (Privigen 10% Vial) 100 mls @ 0 mls/hr IV DAILY@1600 [facility]; Protocol Stop: 06/29/19 23:59 Last Infusion: 06/26/19 17:26 Dose: Infused Documented by: Immune Globulin (Privigen 10%) 200 mls @ 0 mls/hr IV DAILY@1630 [facility]; Protocol Stop: 06/29/19 23:59 Last Infusion: 06/26/19 18:23 Dose: Infused Documented by: [facility]: 07/25/19 06:29 Last Admin: 06/27/19 05:22 Dose: 100 mcg Documented by: Losartan Potassium (Cozaar) 100 mg PO DAILY [facility] Stop: 07/25/19 08:59 Last Admin: 06/27/19 08:40 Dose: 100 mg Documented by: Morphine Sulfate (Morphine Sulfate) 4 mg IV Q4H PRN PRN Reason: Pain Stop: 07/10/19 00:12 Last Admin: 06/26/19 23:13 Dose: 4 mg Documented by: Pantoprazole Sodium (Protonix) 40 mg PO DAILY [facility] Stop: 07/25/19 08:59 Last Admin: 06/27/19 08:40 Dose: 40 mg Documented by: Polyethylene Glycol (Miralax Powder Packet) 17 gm PO DAILY [facility] Stop: 07/27/19 09:29 Last Admin: 06/27/19 09:54 Dose: Not Given Documented by: Tramadol HCl (Ultram) 25 - 50 mg PO Q4H PRN PRN Reason: Pain Stop: 07/26/19 00:12 Last Admin: 06/27/19 08:43 Dose: 50 mg Documented by: (1) Hypothyroidism Hypothyroidism type: unspecified Qualified Code(s): E03.9 - Hypothyroidism, unspecified (2) Hypertension Hypertension type: essential hypertension Qualified Code(s): I10 - Essential (primary) hypertension
[2019-06-27 13:35] LABS: HSV Type 1 DNA Not Detected (Not Detected); HSV Type 1&2 DNA Source CSF; HSV Type 2 DNA Not Detected (Not Detected)
[2019-06-27] MEDS: IMMUNE GLOBULIN IV SCH (16:08)
[2019-06-27] MEDS: IMMUNE GLOBULIN (HUMAN) 200 ML IV SCH (17:30)
--- NOTE | 2019-06-27 21:18 | Communication Note ---
Date of Service: June 27, 2019 Made aware by RN of uncontrolled blood pressure. SBP 140-180s the last 24 hours. Patient with some back pain complaints as per RN. AP Uncontrolled hypertension Add Norvasc to Losartan. Will relay to AM provider.
[2019-06-27] MEDS ORDERED: AMLODIPINE BESYLATE 5 MG TAB PO SCH (21:20)
[2019-06-28] MEDS: TRAMADOL HCL 50 MG TABLET PO PRN ×2 (00:12→14:30)
[2019-06-28] MEDS: LEVOTHYROXINE SODIUM 100 MCG TABLET PO SCH (05:32)
[2019-06-28 05:45] LABS: Basophils # (auto) 0.01 K/uL (0-0.2); Basophils % (auto) 0.2 %; Eosinophils # (auto) 0.08 K/uL (0-0.5); Eosinophils % (auto) 1.9 %; Hematocrit (blood only) 39.2 % (37-47); Immature Granulocytes # (auto) 0.01 K/uL (0.00-0.02); Immature Granulocytes % (auto) 0.2 %; Lymphocytes # (auto) 0.78 K/uL (1.2-3.4); Lymphocytes % (auto) 18.6 %; Mean Corpuscular Hemoglobin 28.2 pg (25-34); Mean Corpuscular Hgb Conc 33.2 g/dL (32-36); Monocytes # (auto) 0.42 K/uL (0.11-0.59); Neutrophils % (auto) 69.1 %; Platelet Count 188 K/uL (130-400); RDW Coefficient of Variation 12.8 % (11.5-14.5); RDW Standard Deviation 39.2 fL (36.4-46.3); Red Blood Count 4.61 M/uL (4.2-5.4)
[2019-06-28 06:12] LABS: BUN Creatinine Ratio 26.4 (10-20); Calcium 8.8 mg/dl (8.5-10.1); Creatinine Clr Calc Pharmacy 105.7 ml/min; Est GFR (African American) 107.7; Est GFR (Non-African American) 92.9; Magnesium 1.8 mg/dl (1.8-2.4); Phosphorus 3.9 mg/dl (2.5-4.9); Potassium 3.9 mmol/L (3.5-5.1)
[2019-06-28] MEDS: FLUOXETINE HCL 20 MG CAP PO SCH (07:51)
[2019-06-28] MEDS: POLYETHYLENE (MIRALAX) 17 GM PACK PO SCH (07:52)
[2019-06-28] MEDS: PANTOprazole 40 MG TAB PO SCH (07:52)
[2019-06-28] MEDS: LOSARTAN POTASSIUM 50 MG TAB PO SCH (07:53)
[2019-06-28] MEDS: cefTRIAXone SODIUM 2,000 MG in DEXTROSE 5% 50 ML IV SCH (07:57)
[2019-06-28] MEDS ORDERED: NON-FORMULARY MEDICATION (Aspirin-Acetaminophen-Caffeine [Excedrin Migraine] 1 TAB) PO PRN (08:04)
[2019-06-28] MEDS: CALCIUM POLYCARBOPHIL 625MG TAB PO SCH (08:34)
[2019-06-28] MEDS: hydroCHLOROthiazide 25 MG TAB PO SCH (10:46)
--- NOTE | 2019-06-28 10:56 | Hospitalist Progress Note ---
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 involving upper and lower extremities with numbness involving hands and soles of the feet worse for the last 1 week Lumbar puncture showed albuminocytologic dissociation with protein of more than 80 and normal cell count Appreciate neurology input and recommendation Will send GQ 1B antibody and CK level Start with IVIG 400 mg/kg/day for 5 day Day #4 of IVIG A bit better symptomatically, denies any other significant sympto Has been participating in PT and OT Has vitamin D deficiency We will start supplement Complains of nausea without any vomiting-we will give Phenergan as needed Complains of urinary frequency without any dysuria-we will send UA (2) Weakness: Pt is 63 y/o F with PMH hypothyroidism, Hartman's esophagus, HTN, dyslipidemia, depression, asthma, IBS presented to ER with complaint of lower extremity weakness a couple of weeks ago, upper extremity weakness past week. There was initial concern for possible guillain barre and pt sent to ER for evaluation. In ER vitals stable. Pt noted to have proximal muscle weakness and hyporeflexia. No SOB DDX: Polyneuropathy, rule out Guillain-Smith syndrome Neurology consulted, Dr. Damian initially recommended transfer to [facility] [place]. [facility] [place] had [place]. Dr. Damian recontacted will admit patient here recommends thoracic and lumbar spine MRI with contrast, recommends lumbar puncture after review of MRI, recommends Lyme, serum protein electrophoresis, B12, folate, vitamin D levels, CPK, acetylcholine receptor binding antibody Remains stable without any more neuro symptoms then proximal muscles weakness involving the upper and lower limbs and numbness involving the hands and soles of the feet Vitamin D level is noted to be low otherwise other test came out to be negative except: Status post lumbar puncture which shows increased protein with normal cytology 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 Does not have any respiratory symptoms Motor function remains unaffected so far Stable without any deterioration (3) Hypothyroidism: TSH: 1.7 -Continue levothyroxine (4) Depression: -Continue fluoxetine DVT Prophylaxis -SCDs Full code as per discussion with pt Follows with Dr Mary Olsen for routine care (5) Hypomagnesemia: Magnesium: 1.6 Normalized (6) Hypertension: Stable -Continue losartan, HCTZ -Remains on the upper side but reasonable (7) Barretts esophagus: -Continue PPI Admission and Anticipated Discharge Date Admission Date: June 24, 2019 Anticipated date of discharge: 06/29/19 Subjective The patient was seen and examined in telemetry unit 63-year-old female with significant past medical history of hypothyroidism, Hartman's esophagus, hypertension, hyperlipidemia, depression, asthma and IBS presented to ER with increasing weakness involving the proximal limb muscles for the last 7 days. She also complained to have numbness involving the hands and feet. Denies any joint pain, any other neurological symptoms, any fever and/or chills, any abdominal pain nausea and/or vomiting 06/26/2019 The patient was seen and examined in telemetry unit She has been getting IVIG for Guillain-Smith syndrome She feels a little bit better regarding symptoms of numbness and tingling in the feet Denies any other symptoms 06/27/2019 The patient was seen and examined in telemetry unit She remains stable and feels that her symptoms have not been improved She complains of constipation Denies any other significant symptoms 06/28/2019 Patient was seen and examined in telemetry unit She feels a little bit better today better numbness and tingling in the extrem ities remains at it was Proximal muscles power seems to be sleeping better Denies any respiratory symptoms Review of Systems Review of Systems: All systems reviewed and are unremarkable except as noted below Neurologic: Sensory sensation seems to be improving but motor function remains unaffected so far Physical Exam Physical Exam: Lying in bed comfortably Constitutional: well developed, well nourished and + obese; no acute distress and not ill appearing Eyes: PERRL, conjunctivae normal, anicteric sclerae ENMT: external ear and nose normal, oropharynx normal Neck: trachea midline, no thyromegaly Respiratory: normal respiratory effort Auscultation: lungs clear to auscultation bilaterally Cardiovascular: Rate/Rhythm: regular rate and regular rhythm Heart Sounds: no murmur Gastrointestinal (Abdomen): Inspection/Auscultation: abdomen normal to inspection and normal bowel sounds Percussion/Palpation: abdomen soft; abdomen nontender Musculoskeletal: No acute arthritis in any joints Neurologic: moves all extremities Still has bilateral proximal muscle weakness involving upper and lower extremities Results & Data ([facility]) Vital Signs (Past 12 Hours) Vital Signs Temp Pulse Pulse Pulse Resp BP BP 06/28/19 08:52 74 06/28/19 08:00 37.2 C 93 H 18 135/86 06/28/19 03:13 36.8 C 75 18 159/96 H 06/27/19 23:20 37.0 C 79 17 147/85 H Pulse Ox 06/28/19 08:52 06/28/19 08:00 96 06/28/19 03:13 97 06/27/19 23:20 95 Laboratory Results Short CBC 06/28/19 Range/Units 05:32 WBC 4.20 L (4.8-10.8) K/uL Hgb 13.0 (12.0-16.0) g/dL Hct 39.2 (37-47) % Plt Count 188 (130-400) K/uL BMP 06/28/19 05:32 Sodium 138 Potassium 3.9 Chloride 105 Carbon Dioxide 29 BUN 18 Creatinine 0.67 Glucose 120 H Calcium 8.8 Medications Administered Current Inpatient Medications Acetaminophen (Tylenol) 650 mg PO Q4H PRN PRN Reason: Pain or Fever Stop: 07/24/19 19:11 Last Admin: 06/25/19 21:56 Dose: 650 mg Documented by: Albuterol (Ventolin Hfa) 2 puffs INH Q6H PRN PRN Reason: Shortness Of Breath Stop: 07/24/19 19:11 Calcium Polycarbophil (Fibercon) [facility] Stop: 07/28/19 08:59 Last Admin: 06/28/19 08:34 Dose: 1,250 mg Documented by: Ergocalciferol (Vitamin D2) 50,000 units PO Q7D@0900 [facility] Stop: 07/25/19 14:59 Last Admin: 06/25/19 16:08 Dose: 50,000 units Documented by: Fluoxetine HCl (Prozac) 20 mg PO DAILY [facility] Stop: 07/25/19 08:59 Last Admin: 06/28/19 07:51 Dose: 20 mg Documented by: Gadobutrol (Gadavist 65ml) 9.7 ml IV ONCE PRN PRN Reason: Interaction Checking Stop: 06/29/19 06:57 Last Admin: 06/25/19 06:38 Dose: 9.7 ml Documented by: Hydrochlorothiazide (Hctz) 25 mg PO QAM [facility] Stop: 07/28/19 09:14 Last Admin: 06/28/19 10:46 Dose: 25 mg Documented by: Lorazepam (Ativan) 0.25 mg in 0.5 mls @ 0.5 mls/min IV Q1H PRN PRN Reason: Anxiety/Agitation Stop: 07/25/19 05:12 Ceftriaxone Sodium 2,000 mg/ (Dextrose) 70 mls @ 140 mls/hr IV Q24H [facility] Stop: 06/30/19 09:29 Last Infusion: 06/28/19 08:42 Dose: Infused Documented by: Immune Globulin (Privigen 10% Vial) 100 mls @ 0 mls/hr IV DAILY@1600 [facility]; Protocol Stop: 06/29/19 23:59 Last Infusion: 06/27/19 17:38 Dose: Infused Documented by: Immune Globulin (Privigen 10%) 200 mls @ 0 mls/hr IV DAILY@1630 [facility]; Protocol Stop: 06/29/19 23:59 Last Infusion: 06/27/19 18:35 Dose: Infused Documented by: Levothyroxine Sodium (Synthroid) 100 mcg PO DAILYBB [facility] Stop: 07/25/19 06:29 Last Admin: 06/28/19 05:32 Dose: 100 mcg Documented by: Losartan Potassium (Cozaar) 100 mg PO DAILY [facility] Stop: 07/25/19 08:59 Last Admin: 06/28/19 07:53 Dose: 100 mg Documented by: Morphine Sulfate (Morphine Sulfate) 4 mg IV Q4H PRN PRN Reason: Pain Stop: 07/10/19 00:12 Last Admin: 06/26/19 23:13 Dose: 4 mg Documented by: Pantoprazole Sodium (Protonix) 40 mg PO DAILY [facility] Stop: 07/25/19 08:59 Last Admin: 06/28/19 07:52 Dose: 40 mg Documented by: Tramadol HCl (Ultram) 25 - 50 mg PO Q4H PRN PRN Reason: Pain Stop: 07/26/19 00:12 Last Admin: 06/28/19 00:12 Dose: 50 mg Documented by: (1) Hypothyroidism Hypothyroidism type: unspecified Qualified Code(s): E03.9 - Hypothyroidism, unspecified (2) Hypertension Hypertension type: essential hypertension Qualified Code(s): I10 - Essential (primary) hypertension
[2019-06-28] MEDS ORDERED: PROMETHAZINE HCL 12.5 MG in SODIUM CHLORIDE 0.9% 50 ML IV PRN (10:57)
[2019-06-28 12:21] LABS: Bacteria Urine Automated Negative (Negative); Bilirubin Urine Negative (Negative); Blood Urine 2+ (Negative); Color Urine Dark Yellow; Epithelial Cell Urine Auto 20-30 /lpf (0-5); Glucose Urine UA Negative (Negative); Ketones Urine Negative (Negative); Leukocyte Esterase Urine Negative (Negative); Nitrite Urine Negative (Negative); Protein Urine 3+ (Negative); Specific Gravity Urine 1.024 (1.000-1.030); Urobilinogen Urine Negative (Negative); pH Urine 5.5 (4.5-7.5)
[2019-06-28 12:50] LABS: Appearance Urine Clear (Clear)
--- NOTE | 2019-06-28 13:44 | Neurology Progress Note ---
Date of Service June 28, 2019 Assessment & Plan (1) Guillain Smith syndrome: (2) Weakness: 1. MRI brain - no acute findings 2. MRI c spine- some spinal cord narrowing 3. MRI T spine - no cord compression 4. MRI L spine- mild enhancement of several nerve roots in cauda equina. 5. LP - keep flat for 2 hours slowly elevate head- keep well hydrated 6. Vit D deficient- start supplement 7. IVIG 0.4 g/kg x 5 days -verify with pharmacy- adjusted weight dose is 30 g daily 8. PT/OT for discharge needs and rehab prior to return home 9. if increase in symptoms or respiratory issues would need transfer to higher level of care for plasma exchange however at this point she is improving 10. would like to observe for 24 hours after last dose to make sure the exam continues to improve. neurology as outpatient in 4-6 weeks Kai Zamarripa DO schedule Admission and Anticipated Discharge Date Admission Date: June 24, 2019 Anticipated date of discharge: 06/29/19 Supervising Physician Co-Signing Physician Notes I have seen and discussed above patient with Dr Shashi Damian, neurology I saw Mrs. Tompkins today reviewed her history performed examination and discussed the above notations with Indu Adams PA-C This history remains vague at least in terms of when the weakness of the lower extremities started and she will date this back to the fall but frankly I suspect the accelerated weakness started 2 to 3 weeks ago and then the paresthesias in the feet and the weakness in the arms within the past week to 10 days She is better least according to what she tells me and according to what Indu Adams has observed after several days of absence from her bedside She was able to stand today which she was unable to do I was able to support her weight on the walker with her proximal arms which she was unable to do The paresthesias in her feet are less but have not disappeared She remains areflexic now on the arms and legs with mild to moderate proximal weakness of the left arm, mild weakness proximally in the right arm, pretty good distal strength in the hands, and with mild to moderate weakness of proximal lower extremities and only minor distal weakness and slight subjective reduction in the appreciation of light touch over the soles of the feet She has 1 more day of IVIG and then I would recommend a day of observation before considering transferring her over to a rehabilitation hospital. 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 We could not offer the latter and if she would deteriorate I would strongly suggest sending her to [facility] for the plasma exchange Hopefully this will be the case She is going to need physical therapy occupational therapy etc. and Dr. Walker will follow her up in the office after discharge from [facility] assuming all things go as well as we hope with continued improvement She will at some point need an EMG to see how much axonal injury has occurred as this will help establish to some degree her prognosis. Shashi Damian MD Janessa See is a 63 year old female with PMH hypothyroidism, Hartman's esophagus, HTN, HLD, depression, asthma, IBS present with LE weakness. She states she thinks she has had weakness in her legs for a while but in the last 2 weeks it has gotten worse. Her legs feeling heavy and noted having difficulty climbing stairs secondary to leg weakness and has had multiple falls. She also started to notice her arm and hand weakness bilaterally. She is having trouble gripping things and has been dropping objects. She fell and was unable to get herself off the floor and was down for about an hour until someone could come and help. She had been able to push up with her arms but now she is unable to do push herself up. She is walking she is able to ambulate however her legs feel stiff. she has chronic tingling sensation to bilateral hands and fingers for years denies any increased. The is a numb sensation to plantar surface bilateral feet and palms of hands. she was seen in clinic yesterday and had labs including sed rate, CRP, rheumatoid factor, ELIZABETH and was started on prednisone. She states there is a extensive CA history in her family but no neurologic issues she is aware of. Her has a diagnosis of MS. Today she is on day 4 of the IVIG. She thinks she is doing better and PT had her up standing today which she thinks is great. she is having some nausea on the IVIG but she can tolerate. denies CP, SOB, abdominal pain, one sided weakness, numbness tingling, N, V, vision changes, bowel or bladder issues. 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 plantar flex ext 4+/5 sensation intact to light and cool but feels numb with touch pulses bilaterally LE +2/5 Results & Data ([facility]) Vital Signs (Past 12 Hours) Vital Signs Temp Pulse Pulse Pulse Resp BP BP 06/28/19 11:47 37.2 C 102 H 18 128/85 06/28/19 10:45 75 148/104 H 06/28/19 08:52 74 06/28/19 08:00 37.2 C 93 H 18 135/86 06/28/19 03:13 36.8 C 75 18 159/96 H Pulse Ox 06/28/19 11:47 97 06/28/19 10:45 97 06/28/19 08:52 06/28/19 08:00 96 06/28/19 03:13 97 Laboratory Results Abnormal lab results 06/28/19 06/28/19 06/28/19 Range/Units 05:32 05:32 12:07 WBC 4.20 L (4.8-10.8) K/uL Lymph # (Auto) 0.78 L (1.2-3.4) K/uL BUN/Creatinine Ratio 26.4 H (10-20) Glucose 120 H (70-99) mg/dl Urine Protein 3+ H (Negative) Urine Blood 2+ H (Negative) Urine RBC (Auto) 10-30 H (0-4) /hpf U Epithel Cells (Auto) 20-30 H (0-5) /lpf Diagnostic Findings no new imaging
[2019-06-28] MEDS: IMMUNE GLOBULIN IV SCH (15:48)
[2019-06-28] MEDS: IMMUNE GLOBULIN (HUMAN) 200 ML IV SCH (17:03)
[2019-06-28] MEDS: MoRPHine SULFATE 4 MG/ML 1 ML CARP\\VIAL IV PRN (19:47)
[2019-06-29] MEDS: MoRPHine SULFATE 4 MG/ML 1 ML CARP\\VIAL IV PRN (00:12)
[2019-06-29 05:45] LABS: Basophils # (auto) 0.02 K/uL (0-0.2); Basophils % (auto) 0.4 %; Eosinophils # (auto) 0.09 K/uL (0-0.5); Eosinophils % (auto) 1.8 %; Hematocrit (blood only) 38.2 % (37-47); Hemoglobin 12.5 g/dL (12.0-16.0); Immature Granulocytes # (auto) 0.02 K/uL (0.00-0.02); Immature Granulocytes % (auto) 0.4 %; Lymphocytes # (auto) 0.63 K/uL (1.2-3.4); Lymphocytes % (auto) 12.5 %; Mean Corpuscular Hemoglobin 27.6 pg (25-34); Mean Corpuscular Hgb Conc 32.7 g/dL (32-36); Mean Corpuscular Volume 84.3 fL (80-100); Monocytes # (auto) 0.73 K/uL (0.11-0.59); Monocytes % (auto) 14.5 %; Neutrophils # (auto) 3.55 K/uL (1.4-6.5); Neutrophils % (auto) 70.4 %; Platelet Count 191 K/uL (130-400); RDW Coefficient of Variation 13.1 % (11.5-14.5); RDW Standard Deviation 39.6 fL (36.4-46.3); Red Blood Count 4.53 M/uL (4.2-5.4); White Blood Count 5.04 K/uL (4.8-10.8)
[2019-06-29] MEDS: LEVOTHYROXINE SODIUM 100 MCG TABLET PO SCH (06:02)
[2019-06-29 06:21] LABS: BUN Creatinine Ratio 29.9 (10-20); Calcium 8.4 mg/dl (8.5-10.1); Est GFR (African American) 94.6; Est GFR (Non-African American) 81.6; Magnesium 1.7 mg/dl (1.8-2.4); Phosphorus 3.7 mg/dl (2.5-4.9); Potassium 3.8 mmol/L (3.5-5.1)
[2019-06-29] MEDS: cefTRIAXone SODIUM 2,000 MG in DEXTROSE 5% 50 ML IV SCH (08:50)
[2019-06-29] MEDS: PANTOprazole 40 MG TAB PO SCH (08:51)
[2019-06-29] MEDS: hydroCHLOROthiazide 25 MG TAB PO SCH (08:51)
[2019-06-29] MEDS: LOSARTAN POTASSIUM 50 MG TAB PO SCH (08:51)
[2019-06-29] MEDS: FLUOXETINE HCL 20 MG CAP PO SCH (08:51)
[2019-06-29] MEDS: CALCIUM POLYCARBOPHIL 625MG TAB PO SCH (08:51)
[2019-06-29] MEDS: DOCUSATE SODIUM 100 MG CAP PO SCH (08:52)
[2019-06-29 09:14] LABS: Albumin 3.2 g/dL (3.8-4.8); Alpha 1 Globulin 0.4 g/dL (0.2-0.3); Alpha 2 Globulin 0.7 g/dL (0.5-0.9); Beta-1-Globulin 0.4 g/dL (0.4-0.6); Beta-2-Globulin 0.3 g/dL (0.2-0.5); Gamma Globulin 1.3 g/dL (0.8-1.7); Herpes Virus 6 (DNA) Not Detected (Not Detected); Herpes Virus 6 (DNA) Source Plasma; Monoclonal Protein Band 1 DNR g/dL (NONE DETECTED); Monoclonal Protein Band 2 DNR g/dL (NONE DETECTED); Monoclonal Protein Band 3 DNR g/dL (NONE DETECTED); Receptor Binding Ab <0.30 nmol/L; Total Protein 6.3 g/dL (6.1-8.1)
--- NOTE | 2019-06-29 11:42 | Hospitalist Progress Note ---
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 muscles weakness involving upper and lower extremities with numbness involving hands and soles of the feet worse for the last 1 week Lumbar puncture showed albuminocytologic dissociation with protein of more than 80 and normal cell count Appreciate neurology input and recommendation Will send GQ 1B antibody and CK level Start with IVIG 400 mg/kg/day for 5 day Day #5 of IVIG A bit better symptomatically, denies any other significant sympto Still has weakness involving the proximal muscles of the lower extremities more than the upper extremities Numbness in the feet seems to be improving Has been participating in PT and OT-recommended rehab Has vitamin D deficiency Has been getting vitamin D supplement Complains of nausea without any vomiting-we will give Phenergan as needed Complains of urinary frequency without any dysuria-we will send UA (2) Weakness: Pt is 63 y/o F with PMH hypothyroidism, Hartman's esophagus, HTN, dyslipid emia, depression, asthma, IBS presented to ER with complaint of lower extremity weakness a couple of weeks ago, upper extremity weakness past week. There was initial concern for possible guillain barre and pt sent to ER for evaluation. In ER vitals stable. Pt noted to have proximal muscle weakness and hyporeflexia. No SOB DDX: Polyneuropathy, rule out Guillain-Smith syndrome Neurology consulted, Dr. Damian initially recommended transfer to [facility] [facility]. [facility] had no beds available. Dr. Damian recontacted will admit patient here recommends thoracic and lumbar spine MRI with contrast, recommends lumbar puncture after review of MRI, recommends Lyme, serum protein electrophoresis, B12, folate, vitamin D levels, CPK, acetylcholine receptor binding antibody Remains stable without any more neuro symptoms then proximal muscles weakness involving the upper and lower limbs and numbness involving the hands and soles of the feet Vitamin D level is noted to be low otherwise other test came out to be negative except: Status post lumbar puncture which shows increased protein with normal cytology Diagnosed to have Guillain-Smith syndrome Does not have any respiratory symptoms Management as above (3) UTI (urinary tract infection): Urine culture came back positive for E. coli and is pansensitive Has been getting intravenous ceftriaxone (4) Hypothyroidism: TSH: 1.7 -Continue levothyroxine (5) Hypomagnesemia: Magnesium: 1.6 Normalized (6) Barretts esophagus: -Continue PPI (7) Hypertension: Stable -Continue losartan, HCTZ -Remains on the upper side but reasonable (8) Depression: -Continue fluoxetine DVT Prophylaxis -SCDs Full code as per discussion with pt Follows with Dr Mary Olsen for routine care Likely be discharged to a rehab facility when accepted Admission and Anticipated Discharge Date Admission Date: June 24, 2019 Anticipated date of discharge: 06/29/19 Subjective The patient was seen and examined in telemetry unit 63-year-old female with significant past medical history of hypothyroidism, Hartman's esophagus, hypertension, hyperlipidemia, depression, asthma and IBS presented to ER with increasing weakness involving the proximal limb muscles for the last 7 days. She also complained to have numbness involving the hands and feet. Denies any joint pain, any other neurological symptoms, any fever and/or chills, any abdominal pain nausea and/or vomiting 06/26/2019 The patient was seen and examined in telemetry unit She has been getting IVIG for Guillain-Smith syndrome She feels a little bit better regarding symptoms of numbness and tingling in the feet Denies any other symptoms 06/27/2019 The patient was seen and examined in telemetry unit She remains stable and feels that her symptoms have not been improved She complains of constipation Denies any other significant symptoms 06/28/2019 Patient was seen and examined in telemetry unit She feels a little bit better today better numbness and tingling in the extremities remains at it was Proximal muscles power seems to be sleeping better Denies any respiratory symptoms 06/29/2019 The patient was seen and examined in telemetry unit She has been on IVIG for the last 4 days and feels that her symptoms are getting better Denies any other symptoms except weakness involving proximal muscles of the lower extremities Review of Systems Review of Systems: All systems reviewed and are unremarkable except as noted below Neurologic: Sensory sensation seems to be improving but motor function remains unaffected so far Physical Exam Physical Exam: Lying in bed comfortably Constitutional: well developed, well nourished and + obese; no acute distress and not ill appearing Eyes: PERRL, conjunctivae normal, anicteric sclerae ENMT: external ear and nose normal, oropharynx normal Neck: trachea midline, no thyromegaly Respiratory: normal respiratory effort Auscultation: lungs clear to auscultation bilaterally Cardiovascular: Rate/Rhythm: regular rate and regular rhythm Heart Sounds: no murmur Gastrointestinal (Abdomen): Inspection/Auscultation: abdomen normal to inspection and normal bowel sounds Percussion/Palpation: abdomen soft; abdomen nontender Neurologic: moves all extremities Upper arm proximal muscles weakness has improved lower extremities proximal muscles remain weak. Results & Data ([facility]) Vital Signs (Past 12 Hours) Vital Signs Temp Pulse Pulse Resp BP Pulse Ox 06/29/19 07:28 36.5 C 89 18 118/74 96 06/29/19 07:14 100 H 06/29/19 04:03 37.0 C 92 H 18 129/80 94 Laboratory Results Short CBC 06/29/19 Range/Units 05:27 WBC 5.04 (4.8-10.8) K/uL Hgb 12.5 (12.0-16.0) g/dL Hct 38.2 (37-47) % Plt Count 191 (130-400) K/uL BMP 06/29/19 05:27 Sodium 135 L Potassium 3.8 Chloride 103 Carbon Dioxide 29 BUN 23 H Creatinine 0.77 Glucose 125 H Calcium 8.4 L Urine 06/28/19 Range/Units 12:07 Urine Color Dark Yellow Urine Appearance Clear (Clear) Urine pH 5.5 (4.5-7.5) Ur Specific [place] 1.024 (1.000-1.030) Urine Protein 3+ H (Negative) Urine Glucose (UA) Negative (Negative) Medications Administered Current Inpatient Medications Acetaminophen (Tylenol) 650 mg PO Q4H PRN PRN Reason: Pain or Fever Stop: 07/24/19 19:11 Last Admin: 06/25/19 21:56 Dose: 650 mg Documented by: Albuterol (Ventolin Hfa) 2 puffs INH Q6H PRN PRN Reason: Shortness Of Breath Stop: 07/24/19 19:11 Calcium Polycarbophil (Fibercon) 1,250 mg PO QAM [facility] Stop: 07/28/19 08:59 Last Admin: 06/29/19 08:51 Dose: 1,250 mg Documented by: Docusate Sodium (Colace) 100 mg PO DAILY [facility] Stop: 07/29/19 08:59 Last Admin: 06/29/19 08:52 Dose: 100 mg Documented by: Ergocalciferol (Vitamin D2) 50,000 units PO Q7D@0900 [facility] Stop: 07/25/19 14:59 Last Admin: 06/25/19 16:08 Dose: 50,000 units Documented by: Fluoxetine HCl (Prozac) 20 mg PO DAILY [facility] Stop: 07/25/19 08:59 Last Admin: 06/29/19 08:51 Dose: 20 mg Documented by: Hydrochlorothiazide (Hctz) 25 mg PO QAM [facility] Stop: 07/28/19 09:14 Last Admin: 06/29/19 08:51 Dose: 25 mg Documented by: Lorazepam (Ativan) 0.25 mg in 0.5 mls @ 0.5 mls/min IV Q1H PRN PRN Reason: Anxiety/Agitation Stop: 07/25/19 05:12 Ceftriaxone Sodium 2,000 mg/ (Dextrose) 70 mls @ 140 mls/hr IV Q24H [facility] Stop: 06/30/19 09:29 Last Infusion: 06/29/19 09:59 Dose: Infused Documented by: Immune Globulin (Privigen 10% Vial) 100 mls @ 0 mls/hr IV DAILY@1600 [facility]; Prot ocol Stop: 06/29/19 23:59 Last Infusion: 06/28/19 18:23 Dose: Infused Documented by: Immune Globulin (Privigen 10%) 200 mls @ 0 mls/hr IV DAILY@1630 [facility]; Protocol Stop: 06/29/19 23:59 Last Infusion: 06/28/19 18:23 Dose: Infused Documented by: Promethazine HCl 12.5 mg/ (Sodium Chloride) 50.5 mls @ 202 mls/hr IV Q6H PRN PRN Reason: Nausea And Vomiting Stop: 07/28/19 10:56 [facility]: 07/25/19 06:29 Last Admin: 06/29/19 06:02 Dose: 100 mcg Documented by: Losartan Potassium (Cozaar) 100 mg PO DAILY [facility] Stop: 07/25/19 08:59 Last Admin: 06/29/19 08:51 Dose: 100 mg Documented by: Morphine Sulfate (Morphine Sulfate) 4 mg IV Q4H PRN PRN Reason: Pain Stop: 07/10/19 00:12 Last Admin: 06/29/19 00:12 Dose: 4 mg Documented by: Pantoprazole Sodium (Protonix) 40 mg PO DAILY [facility] Stop: 07/25/19 08:59 Last Admin: 06/29/19 08:51 Dose: 40 mg Documented by: Tramadol HCl (Ultram) 25 - 50 mg PO Q4H PRN PRN Reason: Pain Stop: 07/26/19 00:12 Last Admin: 06/28/19 14:30 Dose: 50 mg Documented by: (1) Hypothyroidism Hypothyroidism type: unspecified Qualified Code(s): E03.9 - Hypothyroidism, unspecified (2) Hypertension Hypertension type: essential hypertension Qualified Code(s): I10 - Essential (primary) hypertension
--- NOTE | 2019-06-29 13:44 | Communication Note ---
Date of Service: June 29, 2019 I saw Mayi today and and pleased to report that she is even better than she was yesterday. She walked 18 steps with the physical therapist today only for yesterday. Her left arm function is much better approximately that was but still remains weak in the right arm is almost back to what she considers her baseline. Both legs are still weak proximally but not distally and the paresthesias of her feet are stable to somewhat better and certainly have not progressed. She remains without any evidence of cranial nerve involvement. She continues to have no reflexes I can elicit downgoing toes and the pattern and muscle weakness described above with only minor subjective sensory alteration in the soles and slightly over the tops of both feet in a symmetrical fashion and sparing the hands She is getting her last IVIG today Apparently there is some controversy about where her insurance company will permit her to get rehabilitation services. [facility] where I think the intensity of treatment is much higher than she will receive elsewhere but we may have to settle for a somewhat lesser institution With concerns of course that she will have a relapse is a certain small percentage of patients do after IVIG if this occurs she will have to be transferred back we might try another course of IVIG or depending on bed availability at [facility] may transfer her there for plasma exchange Hopefully this will need to be done If she is discharged tomorrow we will probably not be able to see her until the afternoon but if she is still here we will make rounds this to be certain that there is no evidence for worsening of her condition but frankly I doubt this will be the case and tentatively we will agree with any discharge plans that can be made at this time as long as include being sent to rehabilitation facility for physical therapy He does not recall having a gastrointestinal illness in late April and indeed this might have been the precipitating factor allowing for a month's time before the onset of symptoms and this would make her 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 Guzman after discharge from rehabilitation facility Shashi Damian MD
[2019-06-29] MEDS: TRAMADOL HCL 50 MG TABLET PO PRN ×2 (15:47→20:36)
[2019-06-29] MEDS: IMMUNE GLOBULIN IV SCH (15:48)
[2019-06-29] MEDS: IMMUNE GLOBULIN (HUMAN) 200 ML IV SCH (17:33)
[2019-06-29 23:10] LABS: Lyme DNA PCR CSF or Synovial Not detected (Not Detected); Lyme DNA Source CSF; Lyme IgG Band Pattern CSF DNR; Lyme IgG CSF NO BANDS DETECTED; Lyme IgM Band Pattern CSF DNR; Lyme IgM CSF NO BANDS DETECTED
[2019-06-30] MEDS: MoRPHine SULFATE 4 MG/ML 1 ML CARP\\VIAL IV PRN (04:38)
[2019-06-30] MEDS: LEVOTHYROXINE SODIUM 100 MCG TABLET PO SCH (05:42)
[2019-06-30] MEDS: hydroCHLOROthiazide 25 MG TAB PO SCH (08:11)
[2019-06-30] MEDS: CALCIUM POLYCARBOPHIL 625MG TAB PO SCH (08:12)
[2019-06-30] MEDS: PANTOprazole 40 MG TAB PO SCH (08:12)
[2019-06-30] MEDS: LOSARTAN POTASSIUM 50 MG TAB PO SCH (08:13)
[2019-06-30] MEDS: FLUOXETINE HCL 20 MG CAP PO SCH (08:14)
[2019-06-30] MEDS: DOCUSATE SODIUM 100 MG CAP PO SCH (08:14)
--- NOTE | 2019-06-30 13:35 | Discharge Summary ---
Date of Service June 30, 2019 Admission HPI Per Admitting Provider Pt is 63 y/o F with PMH hypothyroidism, Hartman's esophagus, HTN, dyslipidemia, depression, asthma, IBS presented to ER with complaint of weakness. Patient states started with bilateral leg weakness a couple of weeks ago. She describes it as her legs feeling heavy and noted having difficulty climbing stairs secondary to leg weakness. Patient states the past week has noticed arm and hand weakness bilaterally. Reports she has been having trouble gripping things and has been dropping objects. Feels like weakness has increased over the past week. Today she fell and was unable to get herself off the floor for an hour and needed to call for help. Patient states she cannot get off toilet without assistance. States when she is walking she is able to ambulate however her legs feel stiff. Reports chronic tingling sensation to bilateral hands and fingers for years denies any increased. Patient complains of numbness sensation to plantar surface bilateral feet she thinks for several weeks. Denies any short ness of breath. Reports chronic headaches and takes Excedrin in the mornings daily with relief of headache. Denies any increase headache. Denies any visual disturbance or vision loss. Denies any leg or arm pain. Chronic neck pain denies any increase symptoms. Denies back pain, loss of control bowel or bladder. No known tick bites or rashes. No recent URI symptoms. Has IBS and chronic intermittent loose stools, no recent diarrhea. Patient seen in clinic yesterday and had labs including sed rate, CRP, rheumatoid factor, ELIZABETH. And was started on prednisone. Patient does not feel prednisone helped. Denies fever/chills, diaphoresis, N/V/C, dizziness, syncope, CP, orthopnea, palpitations, cough, sore throat, choking, otalgia, rhinorrhea, abdominal pain, extremity edema, urinary symptoms. Admission Exam Per Admitting Provider General: no distress, overweight Head: normocephalic, atraumatic Eyes: PERRL, EOM's intact, conjunctiva non-injected, anicteric ENT: normal inspection external ears, nose, mucous membranes moist Neck: supple, trachea midline, non-tender, ROM intact Lungs: clear, no respiratory distress, no wheezing/rhonchi/rales CV: RRR, no murmur, no pretibial edema Abd: normal BS, soft, non-tender Ext: no cyanosis, no calf tenderness Neuro: A&O x 3, normal affect, facial sensation is intact and symmetric, face is strong and symmetric, hearing grossly intact, no dysarthria, shoulder shrug intact, tongue is midline, normal movement proximal muscle weakness bilateral upper and lower extremities, sebd teacher strength intact bilaterally; decreased patellar reflexes Skin: warm, dry Principal Diagnosis Guillain Melbourne Syndrome E coli UTI Vitamin D Deficiency Discharge Exam CONSTITUTIONAL: WNWD, vitals as above, generally well-appearing, can move around her bed independently EYES: EOMI bilaterally, PERRL, normal conjunctivae, no scleral icterus ENT: external ear and nose normal, oropharynx clear, no TM abnormality, MMM RESPIRATORY: clear to auscultation bilaterally, no crackles, rales or wheezes, normal respiratory effort CARDIOVASCULAR: regular rate and rhythm, S1 and 2 heard without murmurs, gallops or rubs, no JVD, no peripheral edema MUSCULOSKELETAL: strength 4/5 biceps/triceps, 5/5 finger spread, 5/5 leg strength hip flexion/extension, knee flexion/extension, foot plantar/dorsiflexion. Moves around the bed independently-can move and sit on side of the bed on her own. SKIN: warm and dry NEUROLOGIC: patellar DTR-unable to elicit bilaterally, No facial palsy. CN 2- 12 grossly intact, no sensory deficit, normal cognition, normal speech PSYCHIATRIC: alert cooperative and oriented to person, place and time. Discharge Data Allergies Allergy/AdvReac Type Severity Reaction Status Date / Time sucralfate [From Carafate] Allergy Mild Verified 06/24/19 12:46 hornet venom Allergy Unknown ANAPHYLAXIS Verified 06/24/19 12:46 Penicillins Allergy Unknown RASH Unverified 06/24/19 12:46 Sulfa (Sulfonamide Allergy Unknown RASH Verified 06/24/19 12:46 Antibiotics) Consultations 06/24/19 16:21 ED Decision to Admit Stat 06/24/19 19:12 Consult Case Management - Discharge Planning Routine Consult Neurology Routine Ordered Studies 06/24/19 12:04 MR brain MS wo/w con Stat MR cervical spine wo/w con Stat 06/25/19 00:41 MR lumbar spine wo/w con Routine MR thoracic spine wo/w con Routine 06/25/19 10:00 FL lumbar puncture diagnostic Routine Hospital Course (1) Guillain Smith syndrome: (2) Vitamin D deficiency: (3) UTI (urinary tract infection): 63-year-old female presented to the hospital with worsened weakness that have been developing over the last couple of months. She reported her symptoms began in March and notes a flu vaccine given 02/12/2019 per records. She is previously had no issues with flu vaccinations or other vaccinations in the past. She was admitted to the hospitalist service and neurology was consulted for suspected Guyon Smith symptoms. She admitted she was asymptomatic until 2 weeks prior to arrival when a sending weakness became worse. An MRI of the brain was performed revealing no acute findings. An MRI of the cervical, th oracic, lumbar spine was performed revealing some spinal cord narrowing in the cervical region, no cord compression in the thoracic spine region, mild enhancement of several nerve roots in the cauda equina of the lumbar area. CSF studies revealed an elevated protein and IVIG was started for 5 days. A UTI secondary to E. coli was found and treated with IV ceftriaxone for 5 days. She completed treatment prior to discharge. She continued to improve clinically and work with physical and Occupational Therapy. Ultimately rehab was recommended and she was discharged in stable condition to [facility] with close primary care follow-up and neurology follow-up recommended. Further discussion with her primary care provider was recommended regarding future flu vaccinations. Vitamin D replacement was recommended once weekly for 12 weeks. Total Time Total Time Spent Total Time Spent (In Minutes): 60 Total Time Includes: Examination of the Patient, Discharge Planning, Medication Reconciliation and Communication With Other Providers Discharge Plan Discharge Items Patient Disposition: Transfer Shelter Fac Reason For Visit: WEAKNESS Discharge Diagnosis: Guillain Melbourne Syndrome E coli UTI Vitamin D Deficiency Activity: Resume your previous activity Non-emergency contact: Primary Care Provider Call non-emergency contact if: you have any medication questions, your symptoms worsen, your pain is not controlled, your pain is worsening, your pain is unusual for you, your pain is concerning for you and you have a fever Follow-up/Referrals: Shashi Damain MD [Physician] - (followup in 4-6 weeks) Mary Olsen MD [Physician] - (One week after discharge from rehab facility) Diet: Heart Healthy Addtl Attending Provider Instructions: Please take all medications as instructed on discharge list below. It is recommended that you schedule a follow-up appointment with your primary care provider within one week of discharge from the receiving facility. This appointment will be important for discussing risk of flu vaccinations going forward, ensuring appropriate follow-up with Neurology, and ensuring symptoms are continuing to resolve. It was a pleasure taking care of you! Please call if you have any questions or problems. You can reach a [facility] hospitalist on duty at [facility] 24 hours a day by calling [phone]. Take care of yourself. Akilah Guthrie, [facility] Hospitalist Pending Studies at Discharge: No Stand-Alone Forms: My [facility], Smoking Cessation Skilled Items Patient informed of condition?: Yes DNR: No Discharge Level of Care: Skilled Communicable Disease: No Discharge Prognosis: Improving Lines: None Urinary Catheter: No Medications and DC Order Prescriptions: New ergocalciferol (vitamin D2) 1,250 mcg (50,000 unit) Capsule 50,000 unit PO Q7D@0900 Qty: 12 RF: 0 Continued calcium polycarbophil [FiberCon] 625 mg Tablet 1,250 mg PO QAM RF: 0 levothyroxine 100 mcg Tablet 100 mcg PO QAM RF: 0 omeprazole 20 mg capsule,delayed release(DR/EC) 20 mg PO DAILY RF: 0 fluoxetine 20 mg capsule 20 mg PO DAILY RF: 0 albuterol sulfate [Ventolin HFA] 90 mcg/actuation Hfa Aerosol Inhaler 2 puff INHALATION Q6H PRN (Reason: Shortness Of Breath) RF: 0 hydrochlorothiazide 25 mg tablet 25 mg PO DAILY RF: 0 losartan 100 mg tablet 100 mg PO DAILY RF: 0 Excedrin Migraine 250-250-65 mg Tablet 1 tab PO Q6H PRN (Reason: Headache) RF: 0 Discharge Orders: Discharge Order (Routine); Ordered 06/30/19 Ordered By: Akilah Guthrie Admission Data Admit Date/Time: 06/24/19 18:39 Attending Provider: Akilah Guthrie Admit Provider: Vipin Kim Primary Care Provider: PCP,NO Other Providers: Vipin Kim ; Shashi Damian ; [facility] ; [facility] ; [facility],
== END 2019-06-30 17:35 | DRG 95 ==
LOC: ED 11:44 → 2S 11:44 → SUATTDRO 18:39 → OBSVTOIN 18:39